=== PATIENT | male | born 1945 | race Caucasian/White ===

== ENCOUNTER 2017-04-01 20:29 | Inpatient (IN) | payer MEDICARE, MEDICAID ==
--- NOTE | 2017-04-01 21:34 | ED Physician Chart ---
ED Chief Complaint/HPI - Patient Information Date Seen:: 04/01/17 Allergies:: Allergies Allergy/AdvReac Type Severity Reaction Status Date / Time No Known Allergies Allergy Verified 02/19/17 17:07 Vitals:: Vital Signs - 8 hr 04/01/17 20:40 Temp 98.4 F HR 60 RR 18 BP 123/70 O2 Sat % 94 Family Medical History - Family Member Mother History Unknown: Yes Ethnicity: Unknown Living Status: Unknown ED Assessment - Assessment General Assessment: The patient is medically cleared for psych admit on 04/02/17 at 1:18 am. ED Septic Shock - <6hrs of presentation: Vital Signs: Vital Signs - 8 hr 04/01/17 20:40 Temp 98.4 F HR 60 RR 18 BP 123/70 O2 Sat % 94 ED Discharge Plan - Patient Disposition Instructions: Psychosis
[2017-04-01 22:20] LABS: % BASOPHILS 3.4 % (0.0-2.0); % EOSINOPHILS 0.3 % (0.0-5.0); % MONOCYTES 7.6 % (2.0-10.0); % NEUTROPHILS 74.7 % (40.0-80.0); BASOPHILE ABSOLUTE 0.3 Th/cumm (0-0.2); HEMATOCRIT 46.9 % (41.0-60); HEMOGLOBIN 15.1 gm/dL (12-16); LYMPHOCYTE ABSOLUTE 1.3 Th/cmm (1.5-3.0); MEAN CELL VOLUME 87.3 fl (80-99); MEAN CORPUSCULAR HEMOGLOBIN 28.1 pg (27.0-31.0); MEAN CORPUSCULAR HGB CONC 32.1 pg (28.0-36.0); MEAN PLATELET VOLUME 7.5 fl; MONOCYTE ABSOLUTE 0.7 Th/cmm (0.3-1.0); NEUTROPHILE ABSOLUTE 7.3 Th/cmm (1.8-8.0); PLATELET COUNT 333 Th/cmm (150-400); RED BLOOD COUNT 5.37 Mil/cmm (3.80-5.80); RED CELL DISTRIBUTION WIDTH 14.4 % (11.5-20.0); WHITE BLOOD COUNT 9.6 Th/cmm (4.8-10.8)
[2017-04-01 22:29] LABS: ANION GAP 9.7 (7.0-16.0); BUN - UREA NITROGEN 13 mg/dL (7-25); CALCIUM SERUM 9.2 mg/dL (8.6-10.3); CARBON DIOXIDE 24.4 mEq/L (21.0-31.0); CHLORIDE 107 mEq/L (98-107); CREATININE - SERUM 0.7 mg/dL (0.7-1.3); GFR AFRICAN-AMERICAN > 60.0 ml/min (>90); GFR NON AFRICAN-AMERICAN > 60.0 ml/min; GLUCOSE 91 mg/dL (70-105); POTASSIUM SERUM 4.1 mEq/L (3.5-5.1); SODIUM SERUM 137 mEq/L (136-145)
[2017-04-01] MEDS ORDERED: Magnesium Hydroxide (MOM) 30 mL UDC PO PRN (23:49)
[2017-04-01] MEDS ORDERED: Maalox 30 mL Cup PO PRN (23:49)
[2017-04-02 01:51] VITALS: BP 133/76
[2017-04-02] MEDS ORDERED: Albuterol/Ipratropium Neb 3 ML AERS HHN SCH ×2 (07:45)
[2017-04-02] MEDS ORDERED: Non-Formulary Item 1 EA (Albuterol Sulfate [Ventolin Hfa] 2 PUFF) IH SCH (09:00)
[2017-04-02] MEDS ORDERED: Non-Formulary Item 1 EA (Ipratropium Bromide [Atrovent Hfa] 2 PUFF) INH SCH (09:00)
[2017-04-02] MEDS: Aspirin 325 mg EC PO SCH (09:20)
--- NOTE | 2017-04-02 13:30 | History and Physical ---
History of Present Illness - HPI Chief Complaint: agitation HPI: This is a 71 year old male who is a assisted resident admitted to [facility] for agressive behavior. Vital Signs: Last Vital Signs Temp 97.4 F 04/02/17 06:45 Pulse 60 04/02/17 06:45 Resp 18 04/02/17 06:45 BP 140/77 04/02/17 06:45 Pulse Ox 96 04/02/17 06:45 Past Medical History Other History: pvd, copd, apraxia, heart failure, anemia, bph, dysphagia, neuralgia, schizophrenia, anxiety syncope, chronic ischemic heart disease. Family Medical History - Family Member Mother History Unknown: Yes Ethnicity: Unknown Living Status: Unknown Hx Family Cancer: (unknown) Hx Family Coronary Artery Disease: (unknown) Hx Family Congestive Heart Failure: (unknown) Hx Family Hypertension: (unknown) Hx Family Stroke: (unknown) Hx Family Diabetes: (unknown) Hx Family Seizures: (unknown) Hx Family Dementia: (unknown) Hx Family AIDS: (unknown) Hx Family HIV: No Hx Family COPD: (unknown) Hx Family Hepatitis: (unknown) Hx Family Psychiatric Problems: (unknown) Hx Family Tuberculosis: (unknown) Social History Smoke: No Alcohol: None Drugs: None Lives: Group Home - Medications Home Medications: Home Medication Medication Instructions Recorded Type Albuterol Sulfate [Ventolin Hfa] 2 puff IH TID 02/19/17 History Aspirin [Ecotrin] 325 mg PO DAILY 02/19/17 History Clopidogrel [Plavix] 75 mg PO DAILY 02/19/17 History Cyanocobalamin [Vitamin B12] 500 mcg PO DAILY 02/19/17 History Docusate Sodium [Colace] 1 tab PO BID 02/19/17 History Folic Acid [Folate*] 1 mg PO DAILY 02/19/17 History Gabapentin 2 tab PO BID 02/19/17 History Ipratropium [place] [Atrovent Hfa] 2 puff INH TID 02/19/17 History Tamsulosin [Flomax] 1 tab PO HS 02/19/17 History predniSONE [Deltasone] 1 tab PO DAILY 02/19/17 History Acetaminophen [Tylenol] 650 mg PO Q6H PRN tab 03/05/17 Rx Al Hyd/Mg Hyd/Simethicone [Maalox] 30 ml PO Q6H PRN udc 03/05/17 Rx Magnesium Hydroxide [Milk of 30 ml PO HS PRN udc 03/05/17 Rx Magnesia] - Allergies Allergies/Adverse Reactions: Allergies Allergy/AdvReac Type Severity Reaction Status Date / Time No Known Allergies Allergy Verified 02/19/17 17:07 Review of Systems - Review of Systems Constitutional: Report: No Significant Eyes: Report: No Significant ENT: Report: No Significant Respiratory: Report: No Significant Cardiovascular: Report: No Significant Gastrointestinal: Report: No Significant Musculoskeletal: Report: No Significant Skin: Report: No Significant Neurological: Report: No Significant Physical Exam - Physical Exam HEENT: Report: Ears Nose Throat within normal limits Neck: Report: Within normal limits Cardiovascular Systems: Report: +s1/s2 noted Respiratory: Report: Breath Sounds are within normal limits Abdomen: Report: Non-tender to palpation Back: Report: Inspection of back is within normal limits. Extremities: Report: Non-tender to palpation. Skin: Report: Color of skin is within normal limits Neuro/Psych: Report: Mood affect is within normal limits - Assessment Assessment: pvd, copd, apraxia, heart failure, anemia, bph, dysphagia, neuralgia, schizophrenia, anxiety syncope, chronic ischemic heart disease. - Plan Plan: ASPIRATION PRECAUTIONS CONTINUE CURRENT PLAN OF CARE
--- NOTE | 2017-04-02 19:45 | Psychosocial Evaluation ---
DATE OF SERVICE: 04/02/2017 IDENTIFYING DATA: The patient is a 71-year-old male resident of [facility]. Information is obtained by directly interviewing the patient as well as reviewing the admission papers and they are reliable. JUSTIFICATION OF HOSPITALIZATION: The patient is admitted here on a voluntary basis in view of his [id number] behaviors. Staff was spoken to. The patient is interviewed and has been getting easily irritable and angry and is stating that he does not want to talk. The patient prior to the hospitalization has been diagnosed with multiple medical problems such as peripheral vascular disease, COPD, and dysphagia, and the patient also has chronic ischemic heart disease and history of syncopal attacks. The patient at the time of the evaluation is reported to have been getting out of control and could not be contained at a lower level of care and hence the patient has to be transferred over here for further stabilization. Chart is reviewed and the patient is interviewed. During the interview, the patient is getting easily irritable and angry and is stating that there is no reason for him to talk and that all the information is there in the chart I need to look into. Review of the chart indicates that the patient is currently on gabapentin 2 capsules by mouth twice a day. The patient also has been on Plavix and has been getting the prednisone. MEDICAL HISTORY: Physical examination is requested done by Dr. Bates. SUBSTANCE ABUSE HISTORY: None. PHYSICAL OR SEXUAL ABUSE: None. SEXUAL ABUSE HISTORY: None. LEGAL PROBLEMS: None at this time. STRENGTH AND ASSETS: The patient is motivated. MENTAL STATUS EXAMINATION: The patient is a 71-year-old, looking his stated age, socially cooperative. Eye contact is fair. Mood is irritable. Affect is constricted. Insight and judgment are noted to be still impaired. Impulse control is noted to be poor. Coping skills are noted to be very poor. The patient has been having difficult time to cope with the stress. The patient has been testing the limits at this time and we will be observing the patient with the current medications before we start the psychotropic medications. The patient is alert, awake and the patient is fully aware that he is in the hospital, but the patient is getting easily irritable at this time. DIAGNOSTIC IMPRESSION: AXIS I: A. Mood disorder, not otherwise specified. B. Rule out psychosis. AXIS II: None. AXIS III: As per Dr. Bates. IMMEDIATE TREATMENT PLAN: The patient is going to be observed on the inpatient unit, provided with supportive psychotherapy. The patient is going to be closely monitored. Once stabilized, the patient is going to be discharged to self to be followed up on an outpatient basis. JOB# [id number]
[2017-04-03] MEDS: Aspirin 325 mg EC PO SCH (09:00)
--- NOTE | 2017-04-03 12:52 | Internal Medicine Prog Note ---
Internal Medicine Subjective - Subjective Service Date: 04/03/17 Patient seen and examined:: with staff Patient is:: awake Per staff patient has:: no adverse event Internal Medicine Objective - Results Result Diagrams: 04/01/17 21:45 04/01/17 21:45 Recent Labs: Laboratory Last Values WBC 9.6 Th/cmm (4.8-10.8) 04/01/17 21:45 RBC 5.37 Mil/cmm (3.80-5.80) 04/01/17 21:45 Hgb 15.1 gm/dL (12-16) 04/01/17 21:45 Hct 46.9 % (41.0-60) 04/01/17 21:45 MCV 87.3 fl (80-99) 04/01/17 21:45 MCH 28.1 pg (27.0-31.0) 04/01/17 21:45 MCHC Differential 32.1 pg (28.0-36.0) 04/01/17 21:45 RDW 14.4 % (11.5-20.0) 04/01/17 21:45 Plt Count 333 Th/cmm (150-400) 04/01/17 21:45 MPV 7.5 fl 04/01/17 21:45 Neutrophils % 74.7 % (40.0-80.0) 04/01/17 21:45 Lymphocytes % 14.0 % (20.0-50.0) L 04/01/17 21:45 Monocytes % 7.6 % (2.0-10.0) 04/01/17 21:45 Eosinophils % 0.3 % (0.0-5.0) 04/01/17 21:45 Basophils % 3.4 % (0.0-2.0) H 04/01/17 21:45 Sodium 137 mEq/L (136-145) 04/01/17 21:45 Potassium 4.1 mEq/L (3.5-5.1) 04/01/17 21:45 Chloride 107 mEq/L (98-107) 04/01/17 21:45 Carbon Dioxide 24.4 mEq/L (21.0-31.0) 04/01/17 21:45 Anion Gap 9.7 (7.0-16.0) 04/01/17 21:45 BUN 13 mg/dL (7-25) 04/01/17 21:45 Creatinine 0.7 mg/dL (0.7-1.3) 04/01/17 21:45 Est GFR ( Amer) > 60.0 ml/min (>90) 04/01/17 21:45 Est GFR (Non-Af Amer) > 60.0 ml/min 04/01/17 21:45 BUN/Creatinine Ratio 18.6 04/01/17 21:45 Glucose 91 mg/dL (70-105) 04/01/17 21:45 Calcium 9.2 mg/dL (8.6-10.3) 04/01/17 21:45 TSH 0.89 uIU/ml (0.34-5.60) 04/01/17 21:45 - Physical Exam Vitals and I&O: Vital Signs Temp 97.8 F 04/03/17 06:44 Pulse 72 04/03/17 06:44 Resp 20 04/03/17 06:44 BP 110/68 04/03/17 06:44 Pulse Ox 97 04/03/17 06:44 Intake & Output 04/02/17 04/03/17 04/03/17 18:59 06:59 18:59 Intake Total 2 120 Balance 2 120 Intake: Oral 2 120 Other: # Voids 2 3 Active Medications: Current Medications Acetaminophen (Tylenol) 650 mg PO Q6H PRN PRN Reason: Mild Pain/Headache/T above 101 Stop: 05/31/17 23:48 Al Hydrox/Mg Hydrox/Simethicone (Maalox) 30 ml PO Q6H PRN PRN Reason: Dyspepsia Stop: 05/31/17 23:48 Albuterol/Ipratropium (Duoneb Neb) 3 ml HHN Q3HR [facility] Stop: 06/01/17 07:44 Aspirin (Ecotrin) 325 mg PO DAILY [facility] Stop: 06/01/17 08:59 Last Admin: 04/03/17 09:00 Dose: 325 mg Clopidogrel Bisulfate (Plavix) 75 mg PO DAILY [facility] Stop: 06/01/17 08:59 Last Admin: 04/03/17 09:00 Dose: 75 mg Cyanocobalamin (Vitamin B12) 500 mcg PO DAILY [facility] Stop: 06/01/17 08:59 Last Admin: 04/03/17 09:00 Dose: 500 mcg Divalproex Sodium (Depakote Dr) 125 mg PO Q12HR [facility] PRN Reason: Protocol Stop: 06/02/17 20:59 Docusate Sodium (Colace) 100 mg PO BID [facility] Stop: 06/01/17 08:59 Last Admin: 04/03/17 09:00 Dose: 100 mg Folic Acid (Folate) 1 mg PO DAILY [facility] Stop: 06/01/17 08:59 Last Admin: 04/03/17 09:01 Dose: 1 mg Gabapentin (Neurontin) 200 mg PO BID [facility] Stop: 06/01/17 08:59 Last Admin: 04/03/17 09:00 Dose: 200 mg Lorazepam (Ativan) 1 mg PO Q6H PRN; Protocol PRN Reason: Anxiety/Agitation Stop: 06/01/17 01:49 Magnesium Hydroxide (Milk Of Magnesia) 30 ml PO HS PRN PRN Reason: Constipation Stop: 05/31/17 23:48 Prednisone (Deltasone) 10 mg PO DAILY [facility] Stop: 06/01/17 08:59 Last Admin: 04/03/17 09:00 Dose: 10 mg Tamsulosin HCl (Flomax) 0.4 mg PO HS [facility] Stop: 06/01/17 20:59 Last Admin: 04/02/17 21:01 Dose: 0.4 mg Zolpidem Tartrate (Ambien) 5 mg PO HS PRN PRN Reason: Insomnia Stop: 06/01/17 01:49 General: alert HEENT: NC/AT, PERRLA Neck: Supple Lungs: CTAB Cardiovascular: RRR, Normal S1, without murmur Abdomen: non-distended Internal Medicine Assmt/Plan - Assessment Assessment: pvd, copd, apraxia, heart failure, anemia, bph, dysphagia, neuralgia, schizophrenia, anxiety syncope, chronic ischemic heart disease. - Plan Plan: ASPIRATION PRECAUTIONS CONTINUE CURRENT PLAN OF CARE
--- NOTE | 2017-04-03 22:31 | Progress Notes ---
DATE: 04/03/2017 SUBJECTIVE: Staff was spoken to. The patient is interviewed. Mood is noted to be irritable. Affect is constricted. The patient coping skill was noted to be poor at this time. Insight and judgment also noted to be very much impaired. The patient has been having a difficult time to cope with the stress. The patient is screaming and yelling and needs to be redirected. The patient is currently on the prednisone, and zolpidem and in view of his impulsivity, frustration, it is decided to start him on a low dose of the Depakote, which is going to be given at 125 mg twice a day, and the patient is going to be followed up with supportive therapy. [facility]# [id number]
[2017-04-04] MEDS: Aspirin 325 mg EC PO SCH (09:08)
--- NOTE | 2017-04-04 20:30 | Progress Notes ---
DATE: 04/04/2017 PSYCHIATRIC PROGRESS NOTE SUBJECTIVE: Staff was spoken to. The patient is interviewed. Mood is noted to be irritable. Affect is constricted. Coping skills at this time are noted to be very poor. Insight and judgment are also noted to be very much impaired. No side effects to the medications are noted. The patient has been having difficult time to cope with the stress. The patient is currently on low dose of the Depakote in view of his mood swings. No side effects to the medications are noted. Sleep is noted to be poor. Appetite is noted to be fair. ASSESSMENT: The patient is still impulsive. PLAN: To continue patient with supportive therapy and encouraged the patient to verbalize the concerns rather than to act out. [facility]# [id number]
--- NOTE | 2017-04-04 23:01 | Progress Notes ---
DATE: 04/04/2017 SUBJECTIVE: The patient was seen in the dining area watching television without any staff. The patient appears to be guarded and irritable at this time with poor judgement, otherwise appears to be in no acute distress. OBJECTIVE: VITAL SIGNS: Temperature 97.2, heart rate 63, blood pressure 106/65, respirations of 19, 96% on room air. HEENT: Head is atraumatic and normocephalic. Eyes: Bilateral conjunctivae are clear. Bilateral pupils are equally round and reactive. NECK: Supple. No JVD. CARDIOVASCULAR: S1 and S2 without murmur. PULMONARY: Clear to auscultation. GASTROINTESTINAL: Soft and nontender without guarding. Positive bowel sounds. MUSCULOSKELETAL: No clubbing, no cyanosis noted. ASSESSMENT: 1. Psychosis. 2. Mood disorder. 3. Chronic obstructive pulmonary disease. 4. Anemia. 5. Benign prostatic hypertrophy. 6. Peripheral vascular disease. 7. Dysphagia. PLAN: We will continue to keep the patient inpatient in the Psychiatric Unit. We will follow up with a psychiatrist to monitor the patient's condition and status. Treatment plans were discussed with the patient's nurse. Treatment plans were discussed with Dr. Bates. JOB# [id number]
[2017-04-05] MEDS: Aspirin 325 mg EC PO SCH (09:13)
--- NOTE | 2017-04-05 10:58 | General Progress Note ---
Subjective - Review of Systems Events since last encounter: patient irritable denies pain Objective - Results Result Diagrams: 04/01/17 21:45 04/01/17 21:45 Recent Labs: Laboratory Last Values WBC 9.6 Th/cmm (4.8-10.8) 04/01/17 21:45 RBC 5.37 Mil/cmm (3.80-5.80) 04/01/17 21:45 Hgb 15.1 gm/dL (12-16) 04/01/17 21:45 Hct 46.9 % (41.0-60) 04/01/17 21:45 MCV 87.3 fl (80-99) 04/01/17 21:45 MCH 28.1 pg (27.0-31.0) 04/01/17 21:45 MCHC Differential 32.1 pg (28.0-36.0) 04/01/17 21:45 RDW 14.4 % (11.5-20.0) 04/01/17 21:45 Plt Count 333 Th/cmm (150-400) 04/01/17 21:45 MPV 7.5 fl 04/01/17 21:45 Neutrophils % 74.7 % (40.0-80.0) 04/01/17 21:45 Lymphocytes % 14.0 % (20.0-50.0) L 04/01/17 21:45 Monocytes % 7.6 % (2.0-10.0) 04/01/17 21:45 Eosinophils % 0.3 % (0.0-5.0) 04/01/17 21:45 Basophils % 3.4 % (0.0-2.0) H 04/01/17 21:45 Sodium 137 mEq/L (136-145) 04/01/17 21:45 Potassium 4.1 mEq/L (3.5-5.1) 04/01/17 21:45 Chloride 107 mEq/L (98-107) 04/01/17 21:45 Carbon Dioxide 24.4 mEq/L (21.0-31.0) 04/01/17 21:45 Anion Gap 9.7 (7.0-16.0) 04/01/17 21:45 BUN 13 mg/dL (7-25) 04/01/17 21:45 Creatinine 0.7 mg/dL (0.7-1.3) 04/01/17 21:45 Est GFR ( Amer) > 60.0 ml/min (>90) 04/01/17 21:45 Est GFR (Non-Af Amer) > 60.0 ml/min 04/01/17 21:45 BUN/Creatinine Ratio 18.6 04/01/17 21:45 Glucose 91 mg/dL (70-105) 04/01/17 21:45 Calcium 9.2 mg/dL (8.6-10.3) 04/01/17 21:45 TSH 0.89 uIU/ml (0.34-5.60) 04/01/17 21:45 RPR NONREACTIVE (NONREACTIVE) 04/01/17 21:45 - Physical Exam Vitals and I&O: Vital Signs Temp 97.9 F 04/05/17 06:02 Pulse 62 04/05/17 06:02 Resp 20 04/05/17 06:02 BP 104/54 04/05/17 06:02 Pulse Ox 96 04/05/17 06:02 Intake & Output 04/04/17 04/05/17 04/05/17 18:59 06:59 18:59 Intake Total 1200 360 Balance 1200 360 Intake: Oral 1200 360 Other: # Voids 3 1 Active Medications: Current Medications Acetaminophen (Tylenol) 650 mg PO Q6H PRN PRN Reason: Mild Pain/Headache/T above 101 Stop: 05/31/17 23:48 Al Hydrox/Mg Hydrox/Simethicone (Maalox) 30 ml PO Q6H PRN PRN Reason: Dyspepsia Stop: 05/31/17 23:48 Albuterol/Ipratropium (Duoneb Neb) 3 ml HHN Q3HR [facility] Stop: 06/01/17 07:44 Aspirin (Ecotrin) 325 mg PO DAILY [facility] Stop: 06/01/17 08:59 Last Admin: 04/05/17 09:13 Dose: 325 mg Clopidogrel Bisulfate (Plavix) 75 mg PO DAILY [facility] Stop: 06/01/17 08:59 Last Admin: 04/05/17 09:15 Dose: 75 mg Cyanocobalamin (Vitamin B12) 500 mcg PO DAILY [facility] Stop: 06/01/17 08:59 Last Admin: 04/05/17 09:15 Dose: 500 mcg Divalproex Sodium (Depakote Dr) 125 mg PO Q12HR [facility] PRN Reason: Protocol Stop: 06/02/17 20:59 Last Admin: 04/05/17 09:16 Dose: 125 mg Docusate Sodium (Colace) 100 mg PO BID [facility] Stop: 06/01/17 08:59 Last Admin: 04/05/17 09:16 Dose: 100 mg Folic Acid (Folate) 1 mg PO DAILY [facility] Stop: 06/01/17 08:59 Last Admin: 04/05/17 09:16 Dose: 1 mg Gabapentin (Neurontin) 200 mg PO BID [facility] Stop: 06/01/17 08:59 Last Admin: 04/05/17 09:13 Dose: 200 mg Lorazepam (Ativan) 1 mg PO Q6H PRN; Protocol PRN Reason: Anxiety/Agitation Stop: 06/01/17 01:49 Last Admin: 04/03/17 21:14 Dose: 1 mg Magnesium Hydroxide (Milk Of Magnesia) 30 ml PO HS PRN PRN Reason: Constipation Stop: 05/31/17 23:48 Prednisone (Deltasone) 10 mg PO DAILY [facility] Stop: 06/01/17 08:59 Last Admin: 04/05/17 09:13 Dose: 10 mg Tamsulosin HCl (Flomax) 0.4 mg PO HS [facility] Stop: 06/01/17 20:59 Last Admin: 04/04/17 21:44 Dose: 0.4 mg Zolpidem Tartrate (Ambien) 5 mg PO HS PRN PRN Reason: Insomnia Stop: 06/01/17 01:49 General: No acute distress HEENT: Atraumatic Neck: Supple Cardiovascular: Regular rate, Normal S1, Normal S2 Lungs: Clear to auscultation Abdomen: Bowel sounds Assessment/Plan - Problem List Patient Problems: All Active Problems Anemia (Acute) D64.9 BPH (benign prostatic hyperplasia) (Acute) N40.0 COPD (chronic obstructive pulmonary disease) (Acute) Dysphagia (Acute) R13.10 Mood disorder (Acute) F39 Peripheral vascular disease (Acute) I73.9 Psychosis (Acute) F29 - Plan Plan: as per psych will monitor
[2017-04-05] MEDS: Albuterol/Ipratropium Neb 3 ML AERS HHN SCH ×3 (19:31→23:32)
[2017-04-05] MEDS ORDERED: Albuterol/Ipratropium Neb 3 ML AERS HHN ONE (22:26)
[2017-04-06] MEDS ORDERED: Albuterol/Ipratropium Neb 3 ML AERS HHN ONE ×2 (02:46→07:05)
[2017-04-06] MEDS: Albuterol/Ipratropium Neb 3 ML AERS HHN SCH ×5 (03:17→23:19)
[2017-04-06] MEDS: Aspirin 325 mg EC PO SCH (10:34)
--- NOTE | 2017-04-06 11:41 | Internal Medicine Prog Note ---
Internal Medicine Subjective - Subjective Service Date: 04/06/17 Patient is:: awake Per staff patient has:: no adverse event Internal Medicine Objective - Results Result Diagrams: 04/01/17 21:45 04/01/17 21:45 Recent Labs: Laboratory Last Values WBC 9.6 Th/cmm (4.8-10.8) 04/01/17 21:45 RBC 5.37 Mil/cmm (3.80-5.80) 04/01/17 21:45 Hgb 15.1 gm/dL (12-16) 04/01/17 21:45 Hct 46.9 % (41.0-60) 04/01/17 21:45 MCV 87.3 fl (80-99) 04/01/17 21:45 MCH 28.1 pg (27.0-31.0) 04/01/17 21:45 MCHC Differential 32.1 pg (28.0-36.0) 04/01/17 21:45 RDW 14.4 % (11.5-20.0) 04/01/17 21:45 Plt Count 333 Th/cmm (150-400) 04/01/17 21:45 MPV 7.5 fl 04/01/17 21:45 Neutrophils % 74.7 % (40.0-80.0) 04/01/17 21:45 Lymphocytes % 14.0 % (20.0-50.0) L 04/01/17 21:45 Monocytes % 7.6 % (2.0-10.0) 04/01/17 21:45 Eosinophils % 0.3 % (0.0-5.0) 04/01/17 21:45 Basophils % 3.4 % (0.0-2.0) H 04/01/17 21:45 Sodium 137 mEq/L (136-145) 04/01/17 21:45 Potassium 4.1 mEq/L (3.5-5.1) 04/01/17 21:45 Chloride 107 mEq/L (98-107) 04/01/17 21:45 Carbon Dioxide 24.4 mEq/L (21.0-31.0) 04/01/17 21:45 Anion Gap 9.7 (7.0-16.0) 04/01/17 21:45 BUN 13 mg/dL (7-25) 04/01/17 21:45 Creatinine 0.7 mg/dL (0.7-1.3) 04/01/17 21:45 Est GFR ( Amer) > 60.0 ml/min (>90) 04/01/17 21:45 Est GFR (Non-Af Amer) > 60.0 ml/min 04/01/17 21:45 BUN/Creatinine Ratio 18.6 04/01/17 21:45 Glucose 91 mg/dL (70-105) 04/01/17 21:45 Calcium 9.2 mg/dL (8.6-10.3) 04/01/17 21:45 TSH 0.89 uIU/ml (0.34-5.60) 04/01/17 21:45 RPR NONREACTIVE (NONREACTIVE) 04/01/17 21:45 - Physical Exam Vitals and I&O: Vital Signs Temp 98.8 F 04/06/17 06:33 Pulse 60 04/06/17 07:20 Resp 20 04/06/17 07:20 BP 99/57 04/06/17 06:33 Pulse Ox 94 04/06/17 07:20 Intake & Output 04/05/17 04/06/17 04/06/17 18:59 06:59 18:59 Intake Total 1200 180 Balance 1200 180 Intake: Oral 1200 180 Other: # Voids 2 2 # Bowel Movements 1 Active Medications: Current Medications Acetaminophen (Tylenol) 650 mg PO Q6H PRN PRN Reason: Mild Pain/Headache/T above 101 Stop: 05/31/17 23:48 Last Admin: 04/05/17 15:19 Dose: 650 mg Al Hydrox/Mg Hydrox/Simethicone (Maalox) 30 ml PO Q6H PRN PRN Reason: Dyspepsia Stop: 05/31/17 23:48 Albuterol/Ipratropium (Duoneb Neb) 3 ml HHN Q4HRT [facility] Stop: 06/04/17 18:59 Last Admin: 04/06/17 07:20 Dose: Not Given Aspirin (Ecotrin) 325 mg PO DAILY [facility] Stop: 06/01/17 08:59 Last Admin: 04/06/17 10:34 Dose: 325 mg Clopidogrel Bisulfate (Plavix) 75 mg PO DAILY [facility] Stop: 06/01/17 08:59 Last Admin: 04/06/17 10:34 Dose: 75 mg Cyanocobalamin (Vitamin B12) 500 mcg PO DAILY [facility] Stop: 06/01/17 08:59 Last Admin: 04/06/17 10:34 Dose: 500 mcg Divalproex Sodium (Depakote Dr) 125 mg PO Q12HR [facility] PRN Reason: Protocol Stop: 06/02/17 20:59 Last Admin: 04/06/17 10:35 Dose: 125 mg Docusate Sodium (Colace) 100 mg PO BID [facility] Stop: 06/01/17 08:59 Last Admin: 04/06/17 10:35 Dose: 100 mg Folic Acid (Folate) 1 mg PO DAILY [facility] Stop: 06/01/17 08:59 Last Admin: 04/06/17 10:35 Dose: 1 mg Gabapentin (Neurontin) 200 mg PO BID [facility] Stop: 06/01/17 08:59 Last Admin: 04/06/17 10:35 Dose: 200 mg Lorazepam (Ativan) 1 mg PO Q6H PRN; Protocol PRN Reason: Anxiety/Agitation Stop: 06/01/17 01:49 Last Admin: 04/03/17 21:14 Dose: 1 mg Magnesium Hydroxide (Milk Of Magnesia) 30 ml PO HS PRN PRN Reason: Constipation Stop: 05/31/17 23:48 Prednisone (Deltasone) 10 mg PO DAILY [facility] Stop: 06/01/17 08:59 Last Admin: 04/06/17 10:35 Dose: 10 mg Tamsulosin HCl (Flomax) 0.4 mg PO HS [facility] Stop: 06/01/17 20:59 Last Admin: 04/05/17 20:31 Dose: 0.4 mg Zolpidem Tartrate (Ambien) 5 mg PO HS PRN PRN Reason: Insomnia Stop: 06/01/17 01:49 General: alert HEENT: NC/AT, PERRLA Neck: Supple Lungs: CTAB Cardiovascular: RRR, Normal S1, without murmur Abdomen: non-distended Internal Medicine Assmt/Plan - Assessment Assessment: pvd, copd, apraxia, heart failure, anemia, bph, dysphagia, neuralgia, schizophrenia, anxiety syncope, chronic ischemic heart disease. - Plan Plan: ASPIRATION PRECAUTIONS CONTINUE CURRENT PLAN OF CARE
--- NOTE | 2017-04-06 21:26 | Progress Notes ---
DATE: 04/06/2017 SUBJECTIVE: Staff was spoken to. The patient is interviewed. Mood is noted to be less irritable. The patient is isolative and withdrawn. Coping skills are noted to be still poor. Screaming and the yelling episodes have been coming down. He is currently on Depakote. No side effects to the medications are noted. ASSESSMENT: The patient's mood swings are coming under control. PLAN: To continue the patient with the supportive therapy and followup. JOB# [id number]
[2017-04-07] MEDS: Albuterol/Ipratropium Neb 3 ML AERS HHN SCH ×7 (02:14→23:53)
--- NOTE | 2017-04-07 16:18 | General Progress Note ---
Subjective - Review of Systems Events since last encounter: patient awake , in no distress Objective - Results Result Diagrams: 04/01/17 21:45 04/01/17 21:45 Recent Labs: Laboratory Last Values WBC 9.6 Th/cmm (4.8-10.8) 04/01/17 21:45 RBC 5.37 Mil/cmm (3.80-5.80) 04/01/17 21:45 Hgb 15.1 gm/dL (12-16) 04/01/17 21:45 Hct 46.9 % (41.0-60) 04/01/17 21:45 MCV 87.3 fl (80-99) 04/01/17 21:45 MCH 28.1 pg (27.0-31.0) 04/01/17 21:45 MCHC Differential 32.1 pg (28.0-36.0) 04/01/17 21:45 RDW 14.4 % (11.5-20.0) 04/01/17 21:45 Plt Count 333 Th/cmm (150-400) 04/01/17 21:45 MPV 7.5 fl 04/01/17 21:45 Neutrophils % 74.7 % (40.0-80.0) 04/01/17 21:45 Lymphocytes % 14.0 % (20.0-50.0) L 04/01/17 21:45 Monocytes % 7.6 % (2.0-10.0) 04/01/17 21:45 Eosinophils % 0.3 % (0.0-5.0) 04/01/17 21:45 Basophils % 3.4 % (0.0-2.0) H 04/01/17 21:45 Sodium 137 mEq/L (136-145) 04/01/17 21:45 Potassium 4.1 mEq/L (3.5-5.1) 04/01/17 21:45 Chloride 107 mEq/L (98-107) 04/01/17 21:45 Carbon Dioxide 24.4 mEq/L (21.0-31.0) 04/01/17 21:45 Anion Gap 9.7 (7.0-16.0) 04/01/17 21:45 BUN 13 mg/dL (7-25) 04/01/17 21:45 Creatinine 0.7 mg/dL (0.7-1.3) 04/01/17 21:45 Est GFR ( Amer) > 60.0 ml/min (>90) 04/01/17 21:45 Est GFR (Non-Af Amer) > 60.0 ml/min 04/01/17 21:45 BUN/Creatinine Ratio 18.6 04/01/17 21:45 Glucose 91 mg/dL (70-105) 04/01/17 21:45 Calcium 9.2 mg/dL (8.6-10.3) 04/01/17 21:45 TSH 0.89 uIU/ml (0.34-5.60) 04/01/17 21:45 RPR NONREACTIVE (NONREACTIVE) 04/01/17 21:45 - Physical Exam Vitals and I&O: Vital Signs Temp 98.0 F 04/06/17 20:26 Pulse 77 04/07/17 16:01 Resp 20 04/07/17 16:01 BP 108/50 04/06/17 20:26 Pulse Ox 94 04/07/17 16:01 Intake & Output 04/06/17 04/07/17 04/07/17 18:59 06:59 18:59 Intake Total 1200 60 Balance 1200 60 Intake: Oral 1200 60 Other: # Voids 3 1 # Bowel Movements 1 0 Active Medications: Current Medications Acetaminophen (Tylenol) 650 mg PO Q6H PRN PRN Reason: Mild Pain/Headache/T above 101 Stop: 05/31/17 23:48 Last Admin: 04/05/17 15:19 Dose: 650 mg Al Hydrox/Mg Hydrox/Simethicone (Maalox) 30 ml PO Q6H PRN PRN Reason: Dyspepsia Stop: 05/31/17 23:48 Albuterol/Ipratropium (Duoneb Neb) 3 ml HHN Q4HRT [facility] Stop: 06/04/17 18:59 Last Admin: 04/07/17 15:50 Dose: 3 ml Aspirin (Ecotrin) 325 mg PO DAILY [facility] Stop: 06/01/17 08:59 Last Admin: 04/06/17 10:34 Dose: 325 mg Clopidogrel Bisulfate (Plavix) 75 mg PO DAILY [facility] Stop: 06/01/17 08:59 Last Admin: 04/06/17 10:34 Dose: 75 mg Cyanocobalamin (Vitamin B12) 500 mcg PO DAILY [facility] Stop: 06/01/17 08:59 Last Admin: 04/06/17 10:34 Dose: 500 mcg Divalproex Sodium (Depakote Dr) 125 mg PO Q12HR [facility] PRN Reason: Protocol Stop: 06/02/17 20:59 Last Admin: 04/06/17 20:04 Dose: 125 mg Docusate Sodium (Colace) 100 mg PO BID [facility] Stop: 06/01/17 08:59 Last Admin: 04/06/17 18:34 Dose: 100 mg Folic Acid (Folate) 1 mg PO DAILY [facility] Stop: 06/01/17 08:59 Last Admin: 04/06/17 10:35 Dose: 1 mg Gabapentin (Neurontin) 200 mg PO BID [facility] Stop: 06/01/17 08:59 Last Admin: 04/06/17 18:34 Dose: 200 mg Lorazepam (Ativan) 1 mg PO Q6H PRN; Protocol PRN Reason: Anxiety/Agitation Stop: 06/01/17 01:49 Last Admin: 04/03/17 21:14 Dose: 1 mg Magnesium Hydroxide (Milk Of Magnesia) 30 ml PO HS PRN PRN Reason: Constipation Stop: 05/31/17 23:48 Prednisone (Deltasone) 10 mg PO DAILY [facility] Stop: 06/01/17 08:59 Last Admin: 04/06/17 10:35 Dose: 10 mg Tamsulosin HCl (Flomax) 0.4 mg PO HS [facility] Stop: 06/01/17 20:59 Last Admin: 04/06/17 20:05 Dose: 0.4 mg Zolpidem Tartrate (Ambien) 5 mg PO HS PRN PRN Reason: Insomnia Stop: 06/01/17 01:49 General: No acute distress HEENT: Atraumatic Neck: Supple Cardiovascular: Regular rate, Normal S1, Normal S2 Lungs: Clear to auscultation Abdomen: Bowel sounds Assessment/Plan - Problem List Patient Problems: All Active Problems Anemia (Acute) D64.9 BPH (benign prostatic hyperplasia) (Acute) N40.0 COPD (chronic obstructive pulmonary disease) (Acute) Dysphagia (Acute) R13.10 Mood disorder (Acute) F39 Peripheral vascular disease (Acute) I73.9 Psychosis (Acute) F29 - Plan Plan: as per psych will monitor Nutritional Asmnt/Malnutr-PDOC - Dietary Evaluation Malnutrition Findings (Please click <Entered> for more info): Nutritional Asmnt/Malnutrition Start: 04/06/17 15: 43 Text: Status: Complete Freq: Document 04/06/17 15:43 SALIMA (Rec: 04/06/17 15:47 SALIMA [email or web address]) Nutritional Asmnt/Malnutrition Patient General Information Nutritional Screening Moderate Risk Diagnosis psychosis Pertinent Medical Hx/Surgical Hx PVD, CODP, aprzxia, heart failure, anemia, BPH, dysphagia, neuralgia, schizophrenia, anxiety syncope , chronic ischemic heart disease Subjective Information Per EMR, PO intake 100% of all meals since admission Current Diet Order/ Nutrition Support NIALL pureed, nectar, extra gravy Pertinent Medications vitamin B12, colace, folate Pertinent Labs 04/01 nutrition related labs WNL Nutritional Hx/Data Height 1.75 m Height (Calculated Centimeters) 175.3 Current Weight (lbs) 81.647 kg Weight (Calculated Kilograms) 81.6 Weight (Calculated Grams) 59856.6 [place] Body Weight 160 % [place] Body Weight 113 Body Mass Index (BMI) 26.6 Weight Status Overweight GI Symptoms GI Symptoms None Last BM 04/06 Difficult in: None Skin Integrity/Comment: intact Estimated Nutritional Goals BEE in Kcals: Using Current wt Calories/Kcals/Kg 25-30 Kcals Calculated Protein: Using Current wt Protein g/k Protein Calculated 82 Fluid: ml Nutritional Problem No current Nutrition Prob Problem N/A Intervention/Recommendation Comments 1. Continue with current diet as ordered. 2. Monitor PO intake, wt, labs and skin integrity 3. F/U as low riwk in 7 days, 04/13 Expected Outcomes/Goals Expected Outcomes/Goals 1. PO intake to meet at least 75% of nutritional needs. 2. Wt stability, skin to remain intact, labs WNL.
[2017-04-07] MEDS: Aspirin 325 mg EC PO SCH (16:47)
--- NOTE | 2017-04-07 23:45 | Progress Notes ---
DATE: 04/07/2017 SUBJECTIVE: Staff was spoken to. The patient is interviewed. Mood is noted to be irritable. Affect is constricted. The patient is tending to scream and yell. The patient is currently on Depakote as well as gabapentin. The patient has no insight into his illness. The patient is not able to participate in the groups and isolated to most of the time to his room. No side effects to the medications are noted. ASSESSMENT: The patient is still grossly psychotic and still impulsive. PLAN: To continue the patient with supportive therapy, I encouraged the patient to verbalize the concerns rather than to act out. JOB# [id number]
[2017-04-08] MEDS: Albuterol/Ipratropium Neb 3 ML AERS HHN SCH ×5 (02:50→20:33)
--- NOTE | 2017-04-08 09:12 | General Progress Note ---
Subjective - Review of Systems Events since last encounter: awake in no distress Objective - Results Result Diagrams: 04/01/17 21:45 04/01/17 21:45 Recent Labs: Laboratory Last Values WBC 9.6 Th/cmm (4.8-10.8) 04/01/17 21:45 RBC 5.37 Mil/cmm (3.80-5.80) 04/01/17 21:45 Hgb 15.1 gm/dL (12-16) 04/01/17 21:45 Hct 46.9 % (41.0-60) 04/01/17 21:45 MCV 87.3 fl (80-99) 04/01/17 21:45 MCH 28.1 pg (27.0-31.0) 04/01/17 21:45 MCHC Differential 32.1 pg (28.0-36.0) 04/01/17 21:45 RDW 14.4 % (11.5-20.0) 04/01/17 21:45 Plt Count 333 Th/cmm (150-400) 04/01/17 21:45 MPV 7.5 fl 04/01/17 21:45 Neutrophils % 74.7 % (40.0-80.0) 04/01/17 21:45 Lymphocytes % 14.0 % (20.0-50.0) L 04/01/17 21:45 Monocytes % 7.6 % (2.0-10.0) 04/01/17 21:45 Eosinophils % 0.3 % (0.0-5.0) 04/01/17 21:45 Basophils % 3.4 % (0.0-2.0) H 04/01/17 21:45 Sodium 137 mEq/L (136-145) 04/01/17 21:45 Potassium 4.1 mEq/L (3.5-5.1) 04/01/17 21:45 Chloride 107 mEq/L (98-107) 04/01/17 21:45 Carbon Dioxide 24.4 mEq/L (21.0-31.0) 04/01/17 21:45 Anion Gap 9.7 (7.0-16.0) 04/01/17 21:45 BUN 13 mg/dL (7-25) 04/01/17 21:45 Creatinine 0.7 mg/dL (0.7-1.3) 04/01/17 21:45 Est GFR ( Amer) > 60.0 ml/min (>90) 04/01/17 21:45 Est GFR (Non-Af Amer) > 60.0 ml/min 04/01/17 21:45 BUN/Creatinine Ratio 18.6 04/01/17 21:45 Glucose 91 mg/dL (70-105) 04/01/17 21:45 Calcium 9.2 mg/dL (8.6-10.3) 04/01/17 21:45 TSH 0.89 uIU/ml (0.34-5.60) 04/01/17 21:45 RPR NONREACTIVE (NONREACTIVE) 04/01/17 21:45 - Physical Exam Vitals and I&O: Vital Signs Temp 97.7 F 04/08/17 06:20 Pulse 79 04/08/17 07:20 Resp 20 04/08/17 07:20 BP 116/67 04/08/17 06:20 Pulse Ox 96 04/08/17 07:20 Intake & Output 04/07/17 04/08/17 04/08/17 18:59 06:59 18:59 Intake Total 310 Balance 310 Intake: Oral 310 Other: # Voids 2 # Bowel Movements 0 Active Medications: Current Medications Acetaminophen (Tylenol) 650 mg PO Q6H PRN PRN Reason: Mild Pain/Headache/T above 101 Stop: 05/31/17 23:48 Last Admin: 04/05/17 15:19 Dose: 650 mg Al Hydrox/Mg Hydrox/Simethicone (Maalox) 30 ml PO Q6H PRN PRN Reason: Dyspepsia Stop: 05/31/17 23:48 Albuterol/Ipratropium (Duoneb Neb) 3 ml HHN Q4HRT [facility] Stop: 06/04/17 18:59 Last Admin: 04/08/17 07:20 Dose: 3 ml Aspirin (Ecotrin) 325 mg PO DAILY [facility] Stop: 06/01/17 08:59 Last Admin: 04/07/17 16:47 Dose: Not Given Clopidogrel Bisulfate (Plavix) 75 mg PO DAILY [facility] Stop: 06/01/17 08:59 Last Admin: 04/07/17 17:30 Dose: 75 mg Cyanocobalamin (Vitamin B12) 500 mcg PO DAILY [facility] Stop: 06/01/17 08:59 Last Admin: 04/07/17 16:48 Dose: Not Given Divalproex Sodium (Depakote Dr) 125 mg PO Q12HR [facility] PRN Reason: Protocol Stop: 06/02/17 20:59 Last Admin: 04/07/17 20:40 Dose: 125 mg Docusate Sodium (Colace) 100 mg PO BID [facility] Stop: 06/01/17 08:59 Last Admin: 04/07/17 17:29 Dose: Not Given Folic Acid (Folate) 1 mg PO DAILY [facility] Stop: 06/01/17 08:59 Last Admin: 04/07/17 16:48 Dose: Not Given Gabapentin (Neurontin) 200 mg PO BID [facility] Stop: 06/01/17 08:59 Last Admin: 04/07/17 16:48 Dose: Not Given Lorazepam (Ativan) 1 mg PO Q6H PRN; Protocol PRN Reason: Anxiety/Agitation Stop: 06/01/17 01:49 Last Admin: 04/03/17 21:14 Dose: 1 mg Magnesium Hydroxide (Milk Of Magnesia) 30 ml PO HS PRN PRN Reason: Constipation Stop: 05/31/17 23:48 Prednisone (Deltasone) 10 mg PO DAILY [facility] Stop: 06/01/17 08:59 Last Admin: 04/07/17 17:29 Dose: 10 mg Tamsulosin HCl (Flomax) 0.4 mg PO HS [facility] Stop: 06/01/17 20:59 Last Admin: 04/07/17 20:40 Dose: 0.4 mg Zolpidem Tartrate (Ambien) 5 mg PO HS PRN PRN Reason: Insomnia Stop: 06/01/17 01:49 General: No acute distress HEENT: Atraumatic Neck: Supple Cardiovascular: Regular rate, Normal S1, Normal S2 Lungs: Clear to auscultation Abdomen: Bowel sounds Assessment/Plan - Problem List Patient Problems: All Active Problems Anemia (Acute) D64.9 BPH (benign prostatic hyperplasia) (Acute) N40.0 COPD (chronic obstructive pulmonary disease) (Acute) Dysphagia (Acute) R13.10 Mood disorder (Acute) F39 Peripheral vascular disease (Acute) I73.9 Psychosis (Acute) F29 - Plan Plan: as per psych will monitor Nutritional Asmnt/Malnutr-PDOC - Dietary Evaluation Malnutrition Findings (Please click <Entered> for more info): Nutritional Asmnt/Malnutrition Start: 04/06/17 15: 43 Text: Status: Complete Freq: Document 04/06/17 15:43 SALIMA (Rec: 04/06/17 15:47 SALIMA [email or web address]) Nutritional Asmnt/Malnutrition Patient General Information Nutritional Screening Moderate Risk Diagnosis psychosis Pertinent Medical Hx/Surgical Hx PVD, CODP, aprzxia, heart failure, anemia, BPH, dysphagia, neuralgia, schizophrenia, anxiety syncope , chronic ischemic heart disease Subjective Information Per EMR, PO intake 100% of all meals since admission Current Diet Order/ Nutrition Support NIALL pureed, nectar, extra gravy Pertinent Medications vitamin B12, colace, folate Pertinent Labs 04/01 nutrition related labs WNL Nutritional Hx/Data Height 1.75 m Height (Calculated Centimeters) 175.3 Current Weight (lbs) 81.647 kg Weight (Calculated Kilograms) 81.6 Weight (Calculated Grams) 62969.6 [place] Body Weight 160 % [place] Body Weight 113 Body Mass Index (BMI) 26.6 Weight Status Overweight GI Symptoms GI Symptoms None Last BM 04/06 Difficult in: None Skin Integrity/Comment: intact Estimated Nutritional Goals BEE in Kcals: Using Current wt Calories/Kcals/Kg 25-30 Kcals Calculated Protein: Using Current wt Protein g/k Protein Calculated 82 Fluid: ml [id number] Nutritional Problem No current Nutrition Prob Problem N/A Intervention/Recommendation Comments 1. Continue with current diet as ordered. 2. Monitor PO intake, wt, labs and skin integrity 3. F/U as low riwk in 7 days, 04/13 Expected Outcomes/Goals Expected Outcomes/Goals 1. PO intake to meet at least 75% of nutritional needs. 2. Wt stability, skin to remain intact, labs WNL.
[2017-04-08] MEDS: Aspirin 325 mg EC PO SCH (11:11)
--- NOTE | 2017-04-08 18:54 | Progress Notes ---
DATE: 04/08/2017 PSYCHIATRIC PROGRESS NOTE SUBJECTIVE: Staff was spoken to. The patient is interviewed. Mood is noted to be irritable. Affect is constricted. Coping skills are noted to be still poor. Insight and judgment noted to be improving. The patient is currently on 125 mg twice a day of the Depakote and has been able to tolerate. No side effects to the medications are noted at this time. The patient has episodes of screaming and yelling, but he could be redirectable at this time. ASSESSMENT: The patient is still impulsive. PLAN: To continue the patient with supportive therapy. I encouraged the patient to verbalize the concerns rather than to act out. JOB# [id number]
[2017-04-09] MEDS: Albuterol/Ipratropium Neb 3 ML AERS HHN SCH ×7 (00:04→23:48)
--- NOTE | 2017-04-09 08:40 | General Progress Note ---
Subjective - Review of Systems Events since last encounter: still impulsive Objective - Results Result Diagrams: 04/01/17 21:45 04/01/17 21:45 Recent Labs: Laboratory Last Values WBC 9.6 Th/cmm (4.8-10.8) 04/01/17 21:45 RBC 5.37 Mil/cmm (3.80-5.80) 04/01/17 21:45 Hgb 15.1 gm/dL (12-16) 04/01/17 21:45 Hct 46.9 % (41.0-60) 04/01/17 21:45 MCV 87.3 fl (80-99) 04/01/17 21:45 MCH 28.1 pg (27.0-31.0) 04/01/17 21:45 MCHC Differential 32.1 pg (28.0-36.0) 04/01/17 21:45 RDW 14.4 % (11.5-20.0) 04/01/17 21:45 Plt Count 333 Th/cmm (150-400) 04/01/17 21:45 MPV 7.5 fl 04/01/17 21:45 Neutrophils % 74.7 % (40.0-80.0) 04/01/17 21:45 Lymphocytes % 14.0 % (20.0-50.0) L 04/01/17 21:45 Monocytes % 7.6 % (2.0-10.0) 04/01/17 21:45 Eosinophils % 0.3 % (0.0-5.0) 04/01/17 21:45 Basophils % 3.4 % (0.0-2.0) H 04/01/17 21:45 Sodium 137 mEq/L (136-145) 04/01/17 21:45 Potassium 4.1 mEq/L (3.5-5.1) 04/01/17 21:45 Chloride 107 mEq/L (98-107) 04/01/17 21:45 Carbon Dioxide 24.4 mEq/L (21.0-31.0) 04/01/17 21:45 Anion Gap 9.7 (7.0-16.0) 04/01/17 21:45 BUN 13 mg/dL (7-25) 04/01/17 21:45 Creatinine 0.7 mg/dL (0.7-1.3) 04/01/17 21:45 Est GFR ( Amer) > 60.0 ml/min (>90) 04/01/17 21:45 Est GFR (Non-Af Amer) > 60.0 ml/min 04/01/17 21:45 BUN/Creatinine Ratio 18.6 04/01/17 21:45 Glucose 91 mg/dL (70-105) 04/01/17 21:45 Calcium 9.2 mg/dL (8.6-10.3) 04/01/17 21:45 TSH 0.89 uIU/ml (0.34-5.60) 04/01/17 21:45 RPR NONREACTIVE (NONREACTIVE) 04/01/17 21:45 - Physical Exam Vitals and I&O: Vital Signs Temp 98.6 F 04/09/17 06:39 Pulse 66 04/09/17 07:26 Resp 20 04/09/17 07:26 BP 120/69 04/09/17 06:39 Pulse Ox 98 04/09/17 07:26 Intake & Output 04/08/17 04/09/17 04/09/17 18:59 06:59 18:59 Intake Total 800 120 Balance 800 120 Intake: Oral 800 120 Other: # Voids 3 3 # Bowel Movements 1 Active Medications: Current Medications Acetaminophen (Tylenol) 650 mg PO Q6H PRN PRN Reason: Mild Pain/Headache/T above 101 Stop: 05/31/17 23:48 Last Admin: 04/05/17 15:19 Dose: 650 mg Al Hydrox/Mg Hydrox/Simethicone (Maalox) 30 ml PO Q6H PRN PRN Reason: Dyspepsia Stop: 05/31/17 23:48 Albuterol/Ipratropium (Duoneb Neb) 3 ml HHN Q4HRT [facility] Stop: 06/04/17 18:59 Last Admin: 04/09/17 07:26 Dose: 3 ml Aspirin (Ecotrin) 325 mg PO DAILY [facility] Stop: 06/01/17 08:59 Last Admin: 04/08/17 11:11 Dose: 325 mg Clopidogrel Bisulfate (Plavix) 75 mg PO DAILY [facility] Stop: 06/01/17 08:59 Last Admin: 04/08/17 11:11 Dose: 75 mg Cyanocobalamin (Vitamin B12) 500 mcg PO DAILY [facility] Stop: 06/01/17 08:59 Last Admin: 04/08/17 11:11 Dose: 500 mcg Divalproex Sodium (Depakote Dr) 125 mg PO Q12HR [facility] PRN Reason: Protocol Stop: 06/02/17 20:59 Last Admin: 04/08/17 21:41 Dose: 125 mg Docusate Sodium (Colace) 100 mg PO BID [facility] Stop: 06/01/17 08:59 Last Admin: 04/08/17 18:56 Dose: Not Given Folic Acid (Folate) 1 mg PO DAILY [facility] Stop: 06/01/17 08:59 Last Admin: 04/08/17 11:11 Dose: 1 mg Gabapentin (Neurontin) 200 mg PO BID [facility] Stop: 06/01/17 08:59 Last Admin: 04/08/17 18:00 Dose: 200 mg Lorazepam (Ativan) 1 mg PO Q6H PRN; Protocol PRN Reason: Anxiety/Agitation Stop: 06/01/17 01:49 Last Admin: 04/03/17 21:14 Dose: 1 mg Magnesium Hydroxide (Milk Of Magnesia) 30 ml PO HS PRN PRN Reason: Constipation Stop: 05/31/17 23:48 Prednisone (Deltasone) 10 mg PO DAILY [facility] Stop: 06/01/17 08:59 Last Admin: 04/08/17 11:11 Dose: 10 mg Tamsulosin HCl (Flomax) 0.4 mg PO HS [facility] Stop: 06/01/17 20:59 Last Admin: 04/08/17 21:41 Dose: 0.4 mg Zolpidem Tartrate (Ambien) 5 mg PO HS PRN PRN Reason: Insomnia Stop: 06/01/17 01:49 General: No acute distress HEENT: Atraumatic Neck: Supple Cardiovascular: Regular rate, Normal S1, Normal S2 Lungs: Clear to auscultation Abdomen: Bowel sounds Assessment/Plan - Problem List Patient Problems: All Active Problems Anemia (Acute) D64.9 BPH (benign prostatic hyperplasia) (Acute) N40.0 COPD (chronic obstructive pulmonary disease) (Acute) Dysphagia (Acute) R13.10 Mood disorder (Acute) F39 Peripheral vascular disease (Acute) I73.9 Psychosis (Acute) F29 - Plan Plan: as per psych will monitor Nutritional Asmnt/Malnutr-PDOC - Dietary Evaluation Malnutrition Findings (Please click <Entered> for more info): Nutritional Asmnt/Malnutrition Start: 04/06/17 15: 43 Text: Status: Complete Freq: Document 04/06/17 15:43 SALIMA (Rec: 04/06/17 15:47 SALIMA [email or web address]) Nutritional Asmnt/Malnutrition Patient General Information Nutritional Screening Moderate Risk Diagnosis psychosis Pertinent Medical Hx/Surgical Hx PVD, CODP, aprzxia, heart failure, anemia, BPH, dysphagia, neuralgia, schizophrenia, anxiety syncope , chronic ischemic heart disease Subjective Information Per EMR, PO intake 100% of all meals since admission Current Diet Order/ Nutrition Support NIALL pureed, nectar, extra gravy Pertinent Medications vitamin B12, colace, folate Pertinent Labs 04/01 nutrition related labs WNL Nutritional Hx/Data Height 1.75 m Height (Calculated Centimeters) 175.3 Current Weight (lbs) 81.647 kg Weight (Calculated Kilograms) 81.6 Weight (Calculated Grams) 24595.6 [place] Body Weight 160 % [place] Body Weight 113 Body Mass Index (BMI) 26.6 Weight Status Overweight GI Symptoms GI Symptoms None Last BM 04/06 Difficult in: None Skin Integrity/Comment: intact Estimated Nutritional Goals BEE in Kcals: Using Current wt Calories/Kcals/Kg 25-30 Kcals Calculated Protein: Using Current wt Protein g/k Protein Calculated 82 Fluid: ml [id number] Nutritional Problem No current Nutrition Prob Problem N/A Intervention/Recommendation Comments 1. Continue with current diet as ordered. 2. Monitor PO intake, wt, labs and skin integrity 3. F/U as low riwk in 7 days, 04/13 Expected Outcomes/Goals Expected Outcomes/Goals 1. PO intake to meet at least 75% of nutritional needs. 2. Wt stability, skin to remain intact, labs WNL.
[2017-04-09] MEDS: Aspirin 325 mg EC PO SCH (08:57)
[2017-04-09] MEDS ORDERED: Albuterol/Ipratropium Neb 3 ML AERS HHN ONE (22:55)
--- NOTE | 2017-04-09 23:01 | Progress Notes ---
DATE: 04/09/2017 SUBJECTIVE: Staff was spoken to. The patient is interviewed. Mood is noted to be irritable. Affect is constricted. Coping skills are noted to still poor. Sleep and appetite also noted to be very poor. The patients screaming and yelling episodes have been coming down to some extent. The patient has been able to tolerate the Depakote. ASSESSMENT: The patient is still impulsive. PLAN: To continue the patient with the supportive therapy and followup. [facility]# [id number]
[2017-04-10] MEDS ORDERED: Albuterol/Ipratropium Neb 3 ML AERS HHN ONE (02:40)
[2017-04-10] MEDS: Albuterol/Ipratropium Neb 3 ML AERS HHN SCH ×5 (03:05→19:28)
[2017-04-10] MEDS: Aspirin 325 mg EC PO SCH (09:01)
--- NOTE | 2017-04-10 11:44 | Progress Notes ---
DATE: 04/10/2017 SUBJECTIVE: Staff was spoken to. The patient is interviewed. Mood is noted to be anxious. Coping skills are noted to be still poor. The patient's impulsivity is coming under control. No side effects to the medications are noted. The patient has been isolative and withdrawn. No major behavioral problems are noted at this time. ASSESSMENT: The patient is still impulsive. PLAN: To continue the patient with the supportive therapy and followup. [facility]# [id number]
--- NOTE | 2017-04-10 20:49 | Internal Medicine Prog Note ---
Internal Medicine Subjective - Subjective Service Date: 04/10/17 Patient is:: awake Per staff patient has:: no adverse event Internal Medicine Objective - Results Result Diagrams: 04/01/17 21:45 04/01/17 21:45 Recent Labs: Laboratory Last Values WBC 9.6 Th/cmm (4.8-10.8) 04/01/17 21:45 RBC 5.37 Mil/cmm (3.80-5.80) 04/01/17 21:45 Hgb 15.1 gm/dL (12-16) 04/01/17 21:45 Hct 46.9 % (41.0-60) 04/01/17 21:45 MCV 87.3 fl (80-99) 04/01/17 21:45 MCH 28.1 pg (27.0-31.0) 04/01/17 21:45 MCHC Differential 32.1 pg (28.0-36.0) 04/01/17 21:45 RDW 14.4 % (11.5-20.0) 04/01/17 21:45 Plt Count 333 Th/cmm (150-400) 04/01/17 21:45 MPV 7.5 fl 04/01/17 21:45 Neutrophils % 74.7 % (40.0-80.0) 04/01/17 21:45 Lymphocytes % 14.0 % (20.0-50.0) L 04/01/17 21:45 Monocytes % 7.6 % (2.0-10.0) 04/01/17 21:45 Eosinophils % 0.3 % (0.0-5.0) 04/01/17 21:45 Basophils % 3.4 % (0.0-2.0) H 04/01/17 21:45 Sodium 137 mEq/L (136-145) 04/01/17 21:45 Potassium 4.1 mEq/L (3.5-5.1) 04/01/17 21:45 Chloride 107 mEq/L (98-107) 04/01/17 21:45 Carbon Dioxide 24.4 mEq/L (21.0-31.0) 04/01/17 21:45 Anion Gap 9.7 (7.0-16.0) 04/01/17 21:45 BUN 13 mg/dL (7-25) 04/01/17 21:45 Creatinine 0.7 mg/dL (0.7-1.3) 04/01/17 21:45 Est GFR ( Amer) > 60.0 ml/min (>90) 04/01/17 21:45 Est GFR (Non-Af Amer) > 60.0 ml/min 04/01/17 21:45 BUN/Creatinine Ratio 18.6 04/01/17 21:45 Glucose 91 mg/dL (70-105) 04/01/17 21:45 Calcium 9.2 mg/dL (8.6-10.3) 04/01/17 21:45 TSH 0.89 uIU/ml (0.34-5.60) 04/01/17 21:45 RPR NONREACTIVE (NONREACTIVE) 04/01/17 21:45 - Physical Exam Vitals and I&O: Vital Signs Temp 97.8 F 04/10/17 20:13 Pulse 74 04/10/17 20:13 Resp 18 04/10/17 20:13 BP 107/58 04/10/17 20:13 Pulse Ox 93 04/10/17 20:13 Intake & Output 04/10/17 04/10/17 04/11/17 06:59 18:59 06:59 Intake Total 1200 120 Balance 1200 120 Intake: Oral 1200 120 Other: # Voids 3 1 Active Medications: Current Medications Acetaminophen (Tylenol) 650 mg PO Q6H PRN PRN Reason: Mild Pain/Headache/T above 101 Stop: 05/31/17 23:48 Last Admin: 04/05/17 15:19 Dose: 650 mg Al Hydrox/Mg Hydrox/Simethicone (Maalox) 30 ml PO Q6H PRN PRN Reason: Dyspepsia Stop: 05/31/17 23:48 Albuterol/Ipratropium (Duoneb Neb) 3 ml HHN Q4HRT [facility] Stop: 06/04/17 18:59 Last Admin: 04/10/17 16:21 Dose: 3 ml Aspirin (Ecotrin) 325 mg PO DAILY [facility] Stop: 06/01/17 08:59 Last Admin: 04/10/17 09:01 Dose: 325 mg Clopidogrel Bisulfate (Plavix) 75 mg PO DAILY [facility] Stop: 06/01/17 08:59 Last Admin: 04/10/17 09:00 Dose: 75 mg Cyanocobalamin (Vitamin B12) 500 mcg PO DAILY [facility] Stop: 06/01/17 08:59 Last Admin: 04/10/17 09:01 Dose: 500 mcg Divalproex Sodium (Depakote Dr) 125 mg PO Q12HR [facility] PRN Reason: Protocol Stop: 06/02/17 20:59 Last Admin: 04/10/17 20:24 Dose: 125 mg Docusate Sodium (Colace) 100 mg PO BID [facility] Stop: 06/01/17 08:59 Last Admin: 04/10/17 16:27 Dose: 100 mg Folic Acid (Folate) 1 mg PO DAILY [facility] Stop: 06/01/17 08:59 Last Admin: 04/10/17 09:00 Dose: 1 mg Gabapentin (Neurontin) 200 mg PO BID [facility] Stop: 06/01/17 08:59 Last Admin: 04/10/17 16:27 Dose: 200 mg Lorazepam (Ativan) 1 mg PO Q6H PRN; Protocol PRN Reason: Anxiety/Agitation Stop: 06/01/17 01:49 Last Admin: 04/03/17 21:14 Dose: 1 mg Magnesium Hydroxide (Milk Of Magnesia) 30 ml PO HS PRN PRN Reason: Constipation Stop: 05/31/17 23:48 Mupirocin (Bactroban Oint) 1 appl TP BID [facility] Stop: 04/19/17 17:01 Last Admin: 04/10/17 10:50 Dose: 1 appl Tamsulosin HCl (Flomax) 0.4 mg PO HS [facility] Stop: 06/01/17 20:59 Last Admin: 04/10/17 20:24 Dose: 0.4 mg Zolpidem Tartrate (Ambien) 5 mg PO HS PRN PRN Reason: Insomnia Stop: 06/01/17 01:49 General: alert HEENT: NC/AT, PERRLA Neck: Supple Lungs: CTAB Cardiovascular: RRR, Normal S1, without murmur Abdomen: non-distended Internal Medicine Assmt/Plan - Assessment Assessment: pvd, copd, apraxia, heart failure, anemia, bph, dysphagia, neuralgia, schizophrenia, anxiety syncope, chronic ischemic heart disease. - Plan Plan: ASPIRATION PRECAUTIONS CONTINUE CURRENT PLAN OF CARE Nutritional Asmnt/Malnutr-PDOC - Dietary Evaluation Malnutrition Findings (Please click <Entered> for more info): Nutritional Asmnt/Malnutrition Start: 04/06/17 15: 43 Text: Status: Complete Freq: Document 04/06/17 15:43 SALIMA (Rec: 04/06/17 15:47 SALIMA [id number]) Nutritional Asmnt/Malnutrition Patient General Information Nutritional Screening Moderate Risk Diagnosis psychosis Pertinent Medical Hx/Surgical Hx PVD, CODP, aprzxia, heart failure, anemia, BPH, dysphagia, neuralgia, schizophrenia, anxiety syncope , chronic ischemic heart disease Subjective Information Per EMR, PO intake 100% of all meals since admission Current Diet Order/ Nutrition Support NIALL pureed, nectar, extra gravy Pertinent Medications vitamin B12, colace, folate Pertinent Labs 04/01 nutrition related labs WNL Nutritional Hx/Data Height 5 ft 9 in Height (Calculated Centimeters) 175.3 Current Weight (lbs) 180 lb Weight (Calculated Kilograms) 81.6 Weight (Calculated Grams) 41655.6 [place] Body Weight 160 % [place] Body Weight 113 Body Mass Index (BMI) 26.6 Weight Status Overweight GI Symptoms GI Symptoms None Last BM 04/06 Difficult in: None Skin Integrity/Comment: intact Estimated Nutritional Goals BEE in Kcals: Using Current wt Calories/Kcals/Kg 25-30 Kcals Calculated 7536-9748 Protein: Using Current wt Protein g/k Protein Calculated 82 Fluid: ml 6982-4890 Nutritional Problem No current Nutrition Prob Problem N/A Intervention/Recommendation Comments 1. Continue with current diet as ordered. 2. Monitor PO intake, wt, labs and skin integrity 3. F/U as low riwk in 7 days, 04/13 Expected Outcomes/Goals Expected Outcomes/Goals 1. PO intake to meet at least 75% of nutritional needs. 2. Wt stability, skin to remain intact, labs WNL.
[2017-04-11] MEDS: Albuterol/Ipratropium Neb 3 ML AERS HHN SCH ×7 (00:28→23:58)
--- NOTE | 2017-04-11 04:11 | Consultation ---
DATE OF CONSULTATION: 04/09/2017 INFECTIOUS DISEASE CONSULTATION PRIMARY CARE PHYSICIAN: Dr. Bates. REASON FOR CONSULTATION: Rash on the feet. HISTORY OF PRESENT ILLNESS: This is a 71-year-old male, who was brought to the Emergency Room on 04/01/2017 with complaint of altered mental started, aggressive behavior. The patient was found to have rash on the feet and was admitted to [facility] Infectious consultation was called. Discussed with the staff. Bactroban started twice a day. The patient was reluctant to provide any history. Old chart reviewed, pertinent information obtained. PAST MEDICAL HISTORY: COPD, peripheral vascular disease, history of benign prostatic hypertrophy, dysphagia, neuralgia, anxiety, coronary artery disease. FAMILY HISTORY: Negative. PERSONAL HISTORY: . REVIEW OF SYSTEMS: A 14-point review of systems negative except above. PHYSICAL EXAMINATION: GENERAL: An elderly male. VITAL SIGNS: Temperature is 98, pulse 74, respirations 20, blood pressure 100/60. HEENT: Mild pallor, no icterus or plaque. NECK: Supple. LUNGS: Breath sounds bilateral. CARDIOVASCULAR: S1 . ABDOMEN: Soft. Bowel sounds present. NODES: No thyroid or cervical lymph nodes. DIAGNOSES: Folliculitis in both legs. Diagnosis of rash on both feet probably secondary to Staphylococcus, we will put Bactroban. Constipation, docusate. Aspirin for coronary artery disease along with Plavix and valproic acid for aggressive behavior and we will stop Prednisone. Benign prostatic hypertrophy, tamsulosin. Rest of the care as ordered in CPOE. Thank you, Dr. Bates, for this consultation. JOB# [id number]
[2017-04-11] MEDS: Aspirin 325 mg EC PO SCH (09:38)
--- NOTE | 2017-04-11 20:48 | Progress Notes ---
DATE: 04/11/2017 PSYCHIATRIC PROGRESS NOTE SUBJECTIVE: Staff was spoken to. The patient is interviewed. Mood is noted to be irritable. Affect is constricted. Insight and judgment are noted to be improving. Impulse control seems to be poor. The patient is a total care patient. The patient has no insight into his illness. The patient is isolative and withdrawn. Participation in the groups is noted to be very minimal. ASSESSMENT: The patient is still impulsive. PLAN: To continue the patient with Depakote. Encouraged the patient to verbalize the concerns rather than to act out. JOB# [id number]
[2017-04-12] MEDS: Albuterol/Ipratropium Neb 3 ML AERS HHN SCH ×6 (02:55→22:21)
[2017-04-12] MEDS: Aspirin 325 mg EC PO SCH (09:59)
--- NOTE | 2017-04-12 11:17 | General Progress Note ---
Subjective - Review of Systems Events since last encounter: patient continues to be impulsive irritable , in no acute distress Objective - Results Result Diagrams: 04/01/17 21:45 04/01/17 21:45 Recent Labs: Laboratory Last Values WBC 9.6 Th/cmm (4.8-10.8) 04/01/17 21:45 RBC 5.37 Mil/cmm (3.80-5.80) 04/01/17 21:45 Hgb 15.1 gm/dL (12-16) 04/01/17 21:45 Hct 46.9 % (41.0-60) 04/01/17 21:45 MCV 87.3 fl (80-99) 04/01/17 21:45 MCH 28.1 pg (27.0-31.0) 04/01/17 21:45 MCHC Differential 32.1 pg (28.0-36.0) 04/01/17 21:45 RDW 14.4 % (11.5-20.0) 04/01/17 21:45 Plt Count 333 Th/cmm (150-400) 04/01/17 21:45 MPV 7.5 fl 04/01/17 21:45 Neutrophils % 74.7 % (40.0-80.0) 04/01/17 21:45 Lymphocytes % 14.0 % (20.0-50.0) L 04/01/17 21:45 Monocytes % 7.6 % (2.0-10.0) 04/01/17 21:45 Eosinophils % 0.3 % (0.0-5.0) 04/01/17 21:45 Basophils % 3.4 % (0.0-2.0) H 04/01/17 21:45 Sodium 137 mEq/L (136-145) 04/01/17 21:45 Potassium 4.1 mEq/L (3.5-5.1) 04/01/17 21:45 Chloride 107 mEq/L (98-107) 04/01/17 21:45 Carbon Dioxide 24.4 mEq/L (21.0-31.0) 04/01/17 21:45 Anion Gap 9.7 (7.0-16.0) 04/01/17 21:45 BUN 13 mg/dL (7-25) 04/01/17 21:45 Creatinine 0.7 mg/dL (0.7-1.3) 04/01/17 21:45 Est GFR ( Amer) > 60.0 ml/min (>90) 04/01/17 21:45 Est GFR (Non-Af Amer) > 60.0 ml/min 04/01/17 21:45 BUN/Creatinine Ratio 18.6 04/01/17 21:45 Glucose 91 mg/dL (70-105) 04/01/17 21:45 Calcium 9.2 mg/dL (8.6-10.3) 04/01/17 21:45 TSH 0.89 uIU/ml (0.34-5.60) 04/01/17 21:45 RPR NONREACTIVE (NONREACTIVE) 04/01/17 21:45 - Physical Exam Vitals and I&O: Vital Signs Temp 97.9 F 04/12/17 06:37 Pulse 82 04/12/17 10:59 Resp 16 04/12/17 10:59 BP 121/64 04/12/17 06:37 Pulse Ox 92 04/12/17 10:59 Intake & Output 04/11/17 04/12/17 04/12/17 18:59 06:59 18:59 Intake Total 1200 120 Balance 1200 120 Intake: Oral 1200 120 Other: # Voids 3 3 # Bowel Movements 1 Active Medications: Current Medications Acetaminophen (Tylenol) 650 mg PO Q6H PRN PRN Reason: Mild Pain/Headache/T above 101 Stop: 05/31/17 23:48 Last Admin: 04/05/17 15:19 Dose: 650 mg Al Hydrox/Mg Hydrox/Simethicone (Maalox) 30 ml PO Q6H PRN PRN Reason: Dyspepsia Stop: 05/31/17 23:48 Albuterol/Ipratropium (Duoneb Neb) 3 ml HHN Q4HRT [facility] Stop: 06/04/17 18:59 Last Admin: 04/12/17 10:56 Dose: 3 ml Aspirin (Ecotrin) 325 mg PO DAILY [facility] Stop: 06/01/17 08:59 Last Admin: 04/12/17 09:59 Dose: 325 mg Clopidogrel Bisulfate (Plavix) 75 mg PO DAILY [facility] Stop: 06/01/17 08:59 Last Admin: 04/12/17 10:00 Dose: 75 mg Cyanocobalamin (Vitamin B12) 500 mcg PO DAILY [facility] Stop: 06/01/17 08:59 Last Admin: 04/12/17 09:59 Dose: 500 mcg Divalproex Sodium (Depakote Dr) 125 mg PO Q12HR [facility] PRN Reason: Protocol Stop: 06/02/17 20:59 Last Admin: 04/12/17 09:59 Dose: 125 mg Docusate Sodium (Colace) 100 mg PO BID [facility] Stop: 06/01/17 08:59 Last Admin: 04/12/17 09:59 Dose: 100 mg Folic Acid (Folate) 1 mg PO DAILY [facility] Stop: 06/01/17 08:59 Last Admin: 04/12/17 09:59 Dose: 1 mg Gabapentin (Neurontin) 200 mg PO BID [facility] Stop: 06/01/17 08:59 Last Admin: 04/12/17 10:00 Dose: 200 mg Lorazepam (Ativan) 1 mg PO Q6H PRN; Protocol PRN Reason: Anxiety/Agitation Stop: 06/01/17 01:49 Last Admin: 04/03/17 21:14 Dose: 1 mg Magnesium Hydroxide (Milk Of Magnesia) 30 ml PO HS PRN PRN Reason: Constipation Stop: 05/31/17 23:48 Mupirocin (Bactroban Oint) 1 appl TP BID [facility] Stop: 04/19/17 17:01 Last Admin: 04/12/17 10:09 Dose: 1 appl Tamsulosin HCl (Flomax) 0.4 mg PO HS [facility] Stop: 06/01/17 20:59 Last Admin: 04/11/17 20:57 Dose: 0.4 mg Zolpidem Tartrate (Ambien) 5 mg PO HS PRN PRN Reason: Insomnia Stop: 06/01/17 01:49 General: No acute distress HEENT: Atraumatic Neck: Supple Cardiovascular: Regular rate, Normal S1, Normal S2 Lungs: Clear to auscultation Abdomen: Bowel sounds Assessment/Plan - Problem List Patient Problems: All Active Problems Anemia (Acute) D64.9 BPH (benign prostatic hyperplasia) (Acute) N40.0 COPD (chronic obstructive pulmonary disease) (Acute) Dysphagia (Acute) R13.10 Mood disorder (Acute) F39 Peripheral vascular disease (Acute) I73.9 Psychosis (Acute) F29 - Plan Plan: as per psych will monitor Nutritional Asmnt/Malnutr-PDOC - Dietary Evaluation Malnutrition Findings (Please click <Entered> for more info): Nutritional Asmnt/Malnutrition Start: 04/06/17 15: 43 Text: Status: Complete Freq: Document 04/06/17 15:43 SALIMA (Rec: 04/06/17 15:47 SALIMA [email or web address]) Nutritional Asmnt/Malnutrition Patient General Information Nutritional Screening Moderate Risk Diagnosis psychosis Pertinent Medical Hx/Surgical Hx PVD, CODP, aprzxia, heart failure, anemia, BPH, dysphagia, neuralgia, schizophrenia, anxiety syncope , chronic ischemic heart disease Subjective Information Per EMR, PO intake 100% of all meals since admission Current Diet Order/ Nutrition Support NIALL pureed, nectar, extra gravy Pertinent Medications vitamin B12, colace, folate Pertinent Labs 1 nutrition related labs WNL Nutritional Hx/Data Height 1.75 m Height (Calculated Centimeters) 175.3 Current Weight (lbs) 81.647 kg Weight (Calculated Kilograms) 81.6 Weight (Calculated Grams) 76320.6 [place] Body Weight 160 % [place] Body Weight 113 Body Mass Index (BMI) 26.6 Weight Status Overweight GI Symptoms GI Symptoms None Last BM 04/06 Difficult in: None Skin Integrity/Comment: intact Estimated Nutritional Goals BEE in Kcals: Using Current wt Calories/Kcals/Kg 25-30 Kcals Calculated 5037-5226 Protein: Using Current wt Protein g/k Protein Calculated 82 Fluid: ml 8566-2517 Nutritional Problem No current Nutrition Prob Problem N/A Intervention/Recommendation Comments 1. Continue with current diet as ordered. 2. Monitor PO intake, wt, labs and skin integrity 3. F/U as low riwk in 7 days, 04/13 Expected Outcomes/Goals Expected Outcomes/Goals 1. PO intake to meet at least 75% of nutritional needs. 2. Wt stability, skin to remain intact, labs WNL.
--- NOTE | 2017-04-12 20:02 | Progress Notes ---
DATE: 04/12/2017 SUBJECTIVE: Staff was spoken to. The patient is interviewed. Mood is noted to be irritable. Affect is constricted. The patient is isolative and withdrawn. Coping skills are noted to be very poor at this time. No side effects to the medications are noted. The patient has been having difficult time to cope with the stress. ASSESSMENT: The patient is still psychotic and still impulsive. PLAN: To continue the patient with the current medications and await for placement. JOB# [id number]
[2017-04-13] MEDS: Albuterol/Ipratropium Neb 3 ML AERS HHN SCH ×5 (04:03→19:26)
[2017-04-13] MEDS: Aspirin 325 mg EC PO SCH (08:45)
[2017-04-13] MEDS ORDERED: Albuterol/Ipratropium Neb 3 ML AERS HHN PRN (09:14)
--- NOTE | 2017-04-13 10:27 | Progress Notes ---
DATE: 04/13/2017 SUBJECTIVE: Staff was spoken to. The patient is interviewed. Mood is noted to be irritable. Affect is constricted. Insight and judgment at this time are noted to be impaired. Impulse control seems to be limited. The patient is screaming and yelling has been coming down, but the patient is a total care. The patient needs to be taken care. The patient is able to tolerate the Depakote. ASSESSMENT: The patient's impulsivity is coming under control. PLAN: To continue the patient with the supportive therapy and followup. JOB# [id number]
--- NOTE | 2017-04-13 12:43 | General Progress Note ---
Subjective - Review of Systems Events since last encounter: in no distress confused Objective - Results Result Diagrams: 04/01/17 21:45 04/01/17 21:45 Recent Labs: Laboratory Last Values WBC 9.6 Th/cmm (4.8-10.8) 04/01/17 21:45 RBC 5.37 Mil/cmm (3.80-5.80) 04/01/17 21:45 Hgb 15.1 gm/dL (12-16) 04/01/17 21:45 Hct 46.9 % (41.0-60) 04/01/17 21:45 MCV 87.3 fl (80-99) 04/01/17 21:45 MCH 28.1 pg (27.0-31.0) 04/01/17 21:45 MCHC Differential 32.1 pg (28.0-36.0) 04/01/17 21:45 RDW 14.4 % (11.5-20.0) 04/01/17 21:45 Plt Count 333 Th/cmm (150-400) 04/01/17 21:45 MPV 7.5 fl 04/01/17 21:45 Neutrophils % 74.7 % (40.0-80.0) 04/01/17 21:45 Lymphocytes % 14.0 % (20.0-50.0) L 04/01/17 21:45 Monocytes % 7.6 % (2.0-10.0) 04/01/17 21:45 Eosinophils % 0.3 % (0.0-5.0) 04/01/17 21:45 Basophils % 3.4 % (0.0-2.0) H 04/01/17 21:45 Sodium 137 mEq/L (136-145) 04/01/17 21:45 Potassium 4.1 mEq/L (3.5-5.1) 04/01/17 21:45 Chloride 107 mEq/L (98-107) 04/01/17 21:45 Carbon Dioxide 24.4 mEq/L (21.0-31.0) 04/01/17 21:45 Anion Gap 9.7 (7.0-16.0) 04/01/17 21:45 BUN 13 mg/dL (7-25) 04/01/17 21:45 Creatinine 0.7 mg/dL (0.7-1.3) 04/01/17 21:45 Est GFR ( Amer) > 60.0 ml/min (>90) 04/01/17 21:45 Est GFR (Non-Af Amer) > 60.0 ml/min 04/01/17 21:45 BUN/Creatinine Ratio 18.6 04/01/17 21:45 Glucose 91 mg/dL (70-105) 04/01/17 21:45 Calcium 9.2 mg/dL (8.6-10.3) 04/01/17 21:45 TSH 0.89 uIU/ml (0.34-5.60) 04/01/17 21:45 RPR NONREACTIVE (NONREACTIVE) 04/01/17 21:45 - Physical Exam Vitals and I&O: Vital Signs Temp 97.8 F 04/13/17 05:48 Pulse 74 04/13/17 11:03 Resp 18 04/13/17 11:03 BP 104/67 04/13/17 05:48 Pulse Ox 92 04/13/17 10:53 Intake & Output 04/12/17 04/13/17 04/13/17 18:59 06:59 18:59 Intake Total 700 120 Balance 700 120 Intake: Oral 700 120 Other: # Voids 3 3 # Bowel Movements 1 Active Medications: Current Medications Acetaminophen (Tylenol) 650 mg PO Q6H PRN PRN Reason: Mild Pain/Headache/T above 101 Stop: 05/31/17 23:48 Last Admin: 04/05/17 15:19 Dose: 650 mg Al Hydrox/Mg Hydrox/Simethicone (Maalox) 30 ml PO Q6H PRN PRN Reason: Dyspepsia Stop: 05/31/17 23:48 Albuterol/Ipratropium (Duoneb Neb) 3 ml HHN QIDRT [facility] Stop: 06/12/17 10:59 Last Admin: 04/13/17 10:51 Dose: 3 ml Albuterol/Ipratropium (Duoneb Neb) 3 ml HHN Q4HRT PRN PRN Reason: SHORT OF REATH Stop: 06/12/17 10:59 Aspirin (Ecotrin) 325 mg PO DAILY [facility] Stop: 06/01/17 08:59 Last Admin: 04/13/17 08:45 Dose: 325 mg Clopidogrel Bisulfate (Plavix) 75 mg PO DAILY [facility] Stop: 06/01/17 08:59 Last Admin: 04/13/17 08:44 Dose: 75 mg Cyanocobalamin (Vitamin B12) 500 mcg PO DAILY [facility] Stop: 06/01/17 08:59 Last Admin: 04/13/17 08:45 Dose: 500 mcg Divalproex Sodium (Depakote Dr) 125 mg PO Q12HR [facility] PRN Reason: Protocol Stop: 06/02/17 20:59 Last Admin: 04/13/17 08:45 Dose: 125 mg Docusate Sodium (Colace) 100 mg PO BID [facility] Stop: 06/01/17 08:59 Last Admin: 04/13/17 08:44 Dose: 100 mg Folic Acid (Folate) 1 mg PO DAILY [facility] Stop: 06/01/17 08:59 Last Admin: 04/13/17 08:45 Dose: 1 mg Gabapentin (Neurontin) 200 mg PO BID [facility] Stop: 06/01/17 08:59 Last Admin: 04/13/17 08:44 Dose: 200 mg Lorazepam (Ativan) 1 mg PO Q6H PRN; Protocol PRN Reason: Anxiety/Agitation Stop: 06/01/17 01:49 Last Admin: 04/03/17 21:14 Dose: 1 mg Magnesium Hydroxide (Milk Of Magnesia) 30 ml PO HS PRN PRN Reason: Constipation Stop: 05/31/17 23:48 Mupirocin (Bactroban Oint) 1 appl TP BID [facility] Stop: 04/19/17 17:01 Last Admin: 04/13/17 08:46 Dose: 1 appl Tamsulosin HCl (Flomax) 0.4 mg PO HS [facility] Stop: 06/01/17 20:59 Last Admin: 04/12/17 20:29 Dose: 0.4 mg Zolpidem Tartrate (Ambien) 5 mg PO HS PRN PRN Reason: Insomnia Stop: 06/01/17 01:49 General: No acute distress HEENT: Atraumatic Neck: Supple Cardiovascular: Regular rate, Normal S1, Normal S2 Lungs: Clear to auscultation Abdomen: Bowel sounds Assessment/Plan - Problem List Patient Problems: All Active Problems Anemia (Acute) D64.9 BPH (benign prostatic hyperplasia) (Acute) N40.0 COPD (chronic obstructive pulmonary disease) (Acute) Dysphagia (Acute) R13.10 Mood disorder (Acute) F39 Peripheral vascular disease (Acute) I73.9 Psychosis (Acute) F29 - Plan Plan: as per psych will monitor Nutritional Asmnt/Malnutr-PDOC - Dietary Evaluation Malnutrition Findings (Please click <Entered> for more info): Nutritional Asmnt/Malnutrition Start: 04/06/17 15: 43 Text: Status: Complete Freq: Document 04/06/17 15:43 SALIMA (Rec: 04/06/17 15:47 ROHITH [email or web address]) Nutritional Asmnt/Malnutrition Patient General Information Nutritional Screening Moderate Risk Diagnosis psychosis Pertinent Medical Hx/Surgical Hx PVD, CODP, aprzxia, heart failure, anemia, BPH, dysphagia, neuralgia, schizophrenia, anxiety syncope , chronic ischemic heart disease Subjective Information Per EMR, PO intake 100% of all meals since admission Current Diet Order/ Nutrition Support NIALL pureed, nectar, extra gravy Pertinent Medications vitamin B12, colace, folate Pertinent Labs 1/ nutrition related labs WNL Nutritional Hx/Data Height 1.75 m Height (Calculated Centimeters) 175.3 Current Weight (lbs) 81.647 kg Weight (Calculated Kilograms) 81.6 Weight (Calculated Grams) 76676.6 [place] Body Weight 160 % [place] Body Weight 113 Body Mass Index (BMI) 26.6 Weight Status Overweight GI Symptoms GI Symptoms None Last BM 04/06 Difficult in: None Skin Integrity/Comment: intact Estimated Nutritional Goals BEE in Kcals: Using Current wt Calories/Kcals/Kg 25-30 Kcals Calculated 5373-7163 Protein: Using Current wt Protein g/k Protein Calculated 82 Fluid: ml 0363-6813 Nutritional Problem No current Nutrition Prob Problem N/A Intervention/Recommendation Comments 1. Continue with current diet as ordered. 2. Monitor PO intake, wt, labs and skin integrity 3. F/U as low riwk in 7 days, 04/13 Expected Outcomes/Goals Expected Outcomes/Goals 1. PO intake to meet at least 75% of nutritional needs. 2. Wt stability, skin to remain intact, labs WNL.
[2017-04-14] MEDS: Albuterol/Ipratropium Neb 3 ML AERS HHN SCH ×4 (08:19→19:49)
--- NOTE | 2017-04-14 10:56 | Progress Notes ---
DATE: 04/13/2017 SUBJECTIVE: The patient was seen in his room, lying in the bed. The patient appears to be guarded with poor judgement, but in no acute distress. OBJECTIVE: VITAL SIGNS: Temperature 97.3, heart rate 85, respirations of 14, 96% on room air. HEENT: Head is atraumatic and normocephalic. Eyes: Bilateral conjunctivae are clear. Bilateral pupils are equally round and reactive. NECK: Supple. No JVD. CARDIOVASCULAR: S1 and S2, without murmur. PULMONARY: Clear to auscultation. GASTROINTESTINAL: Soft and nontender without guarding. Positive bowel sounds. MUSCULOSKELETAL: No clubbing, no cyanosis noted. ASSESSMENT: 1. Psychosis. 2. Mood disorder. 3. Chronic obstructive pulmonary disease. 4. Benign prostatic hypertrophy. 5. Peripheral vascular disease. 6. Anemia. PLAN: We will continue to keep the patient in inpatient Psychiatric Unit. We will follow up with a psychiatrist to monitor the patient's condition behavior. Treatment plans were discussed with the patient's nurse. Treatment plans were discussed with Dr. Bates. [facility]# [id number]
[2017-04-14] MEDS: Aspirin 325 mg EC PO SCH (10:59)
--- NOTE | 2017-04-14 17:12 | Internal Medicine Prog Note ---
Internal Medicine Subjective - Subjective Service Date: 04/14/17 Patient is:: awake Per staff patient has:: no adverse event Internal Medicine Objective - Results Result Diagrams: 04/01/17 21:45 04/01/17 21:45 Recent Labs: Laboratory Last Values WBC 9.6 Th/cmm (4.8-10.8) 04/01/17 21:45 RBC 5.37 Mil/cmm (3.80-5.80) 04/01/17 21:45 Hgb 15.1 gm/dL (12-16) 04/01/17 21:45 Hct 46.9 % (41.0-60) 04/01/17 21:45 MCV 87.3 fl (80-99) 04/01/17 21:45 MCH 28.1 pg (27.0-31.0) 04/01/17 21:45 MCHC Differential 32.1 pg (28.0-36.0) 04/01/17 21:45 RDW 14.4 % (11.5-20.0) 04/01/17 21:45 Plt Count 333 Th/cmm (150-400) 04/01/17 21:45 MPV 7.5 fl 04/01/17 21:45 Neutrophils % 74.7 % (40.0-80.0) 04/01/17 21:45 Lymphocytes % 14.0 % (20.0-50.0) L 04/01/17 21:45 Monocytes % 7.6 % (2.0-10.0) 04/01/17 21:45 Eosinophils % 0.3 % (0.0-5.0) 04/01/17 21:45 Basophils % 3.4 % (0.0-2.0) H 04/01/17 21:45 Sodium 137 mEq/L (136-145) 04/01/17 21:45 Potassium 4.1 mEq/L (3.5-5.1) 04/01/17 21:45 Chloride 107 mEq/L (98-107) 04/01/17 21:45 Carbon Dioxide 24.4 mEq/L (21.0-31.0) 04/01/17 21:45 Anion Gap 9.7 (7.0-16.0) 04/01/17 21:45 BUN 13 mg/dL (7-25) 04/01/17 21:45 Creatinine 0.7 mg/dL (0.7-1.3) 04/01/17 21:45 Est GFR ( Amer) > 60.0 ml/min (>90) 04/01/17 21:45 Est GFR (Non-Af Amer) > 60.0 ml/min 04/01/17 21:45 BUN/Creatinine Ratio 18.6 04/01/17 21:45 Glucose 91 mg/dL (70-105) 04/01/17 21:45 Calcium 9.2 mg/dL (8.6-10.3) 04/01/17 21:45 TSH 0.89 uIU/ml (0.34-5.60) 04/01/17 21:45 RPR NONREACTIVE (NONREACTIVE) 04/01/17 21:45 - Physical Exam Vitals and I&O: Vital Signs Temp 98.5 F 04/14/17 15:28 Pulse 80 04/14/17 15:50 Resp 20 04/14/17 15:50 BP 102/52 04/14/17 15:28 Pulse Ox 96 04/14/17 15:50 Intake & Output 04/13/17 04/14/17 04/14/17 18:59 06:59 18:59 Intake Total 1200 300 Output Total 1 Balance 1200 299 Intake: Oral 1200 300 Output: Stool 1 Other: # Voids 3 2 # Bowel Movements 0 Active Medications: Current Medications Acetaminophen (Tylenol) 650 mg PO Q6H PRN PRN Reason: Mild Pain/Headache/T above 101 Stop: 05/31/17 23:48 Last Admin: 04/05/17 15:19 Dose: 650 mg Al Hydrox/Mg Hydrox/Simethicone (Maalox) 30 ml PO Q6H PRN PRN Reason: Dyspepsia Stop: 05/31/17 23:48 Albuterol/Ipratropium (Duoneb Neb) 3 ml HHN QIDRT HAY Stop: 06/12/17 10:59 Last Admin: 04/14/17 15:50 Dose: 3 ml Albuterol/Ipratropium (Duoneb Neb) 3 ml HHN Q4HRT PRN PRN Reason: SHORT OF REATH Stop: 06/12/17 10:59 Last Admin: 04/14/17 05:08 Dose: 3 ml Aspirin (Ecotrin) 325 mg PO DAILY [facility] Stop: 06/01/17 08:59 Last Admin: 04/14/17 10:59 Dose: 325 mg Clopidogrel Bisulfate (Plavix) 75 mg PO DAILY [facility] Stop: 06/01/17 08:59 Last Admin: 04/14/17 10:59 Dose: 75 mg Cyanocobalamin (Vitamin B12) 500 mcg PO DAILY [facility] Stop: 06/01/17 08:59 Last Admin: 04/14/17 11:00 Dose: 500 mcg Divalproex Sodium (Depakote Dr) 125 mg PO Q12HR HAY PRN Reason: Protocol Stop: 06/02/17 20:59 Last Admin: 04/14/17 10:59 Dose: 125 mg Docusate Sodium (Colace) 100 mg PO BID [facility] Stop: 06/01/17 08:59 Last Admin: 04/14/17 11:13 Dose: Not Given Folic Acid (Folate) 1 mg PO DAILY [facility] Stop: 06/01/17 08:59 Last Admin: 04/14/17 10:59 Dose: 1 mg Gabapentin (Neurontin) 200 mg PO BID [facility] Stop: 06/01/17 08:59 Last Admin: 04/14/17 11:13 Dose: 200 mg Lorazepam (Ativan) 1 mg PO Q6H PRN; Protocol PRN Reason: Anxiety/Agitation Stop: 06/01/17 01:49 Last Admin: 04/03/17 21:14 Dose: 1 mg Magnesium Hydroxide (Milk Of Magnesia) 30 ml PO HS PRN PRN Reason: Constipation Stop: 05/31/17 23:48 Mupirocin (Bactroban Oint) 1 appl TP BID [facility] Stop: 04/19/17 17:01 Last Admin: 04/14/17 11:13 Dose: 1 appl Ondansetron HCl (Zofran Odt) 4 mg PO Q6H PRN PRN Reason: Nausea / Vomiting Stop: 06/13/17 06:31 Tamsulosin HCl (Flomax) 0.4 mg PO HS [facility] Stop: 06/01/17 20:59 Last Admin: 04/13/17 20:07 Dose: 0.4 mg Zolpidem Tartrate (Ambien) 5 mg PO HS PRN PRN Reason: Insomnia Stop: 06/01/17 01:49 General: alert HEENT: NC/AT, PERRLA Neck: Supple Lungs: CTAB Cardiovascular: RRR, Normal S1, without murmur Abdomen: non-distended Internal Medicine Assmt/Plan - Assessment Assessment: pvd, copd, apraxia, heart failure, anemia, bph, dysphagia, neuralgia, schizophrenia, anxiety syncope, chronic ischemic heart disease. - Plan Plan: ASPIRATION PRECAUTIONS CONTINUE CURRENT PLAN OF CARE Nutritional Asmnt/Malnutr-PDOC - Dietary Evaluation Malnutrition Findings (Please click <Entered> for more info): Nutritional Asmnt/Malnutrition Start: 04/06/17 15: 43 Text: Status: Complete Freq: Document 04/06/17 15:43 SALIMA (Rec: 04/06/17 15:47 SALIMA [email or web address]) Nutritional Asmnt/Malnutrition Patient General Information Nutritional Screening Moderate Risk Diagnosis psychosis Pertinent Medical Hx/Surgical Hx PVD, CODP, aprzxia, heart failure, anemia, BPH, dysphagia, neuralgia, schizophrenia, anxiety syncope , chronic ischemic heart disease Subjective Information Per EMR, PO intake 100% of all meals since admission Current Diet Order/ Nutrition Support NIALL pureed, nectar, extra gravy Pertinent Medications vitamin B12, colace, folate Pertinent Labs 1/ nutrition related labs WNL Nutritional Hx/Data Height 5 ft 9 in Height (Calculated Centimeters) 175.3 Current Weight (lbs) 180 lb Weight (Calculated Kilograms) 81.6 Weight (Calculated Grams) 28937.6 [place] Body Weight 160 % [place] Body Weight 113 Body Mass Index (BMI) 26.6 Weight Status Overweight GI Symptoms GI Symptoms None Last BM 04/06 Difficult in: None Skin Integrity/Comment: intact Estimated Nutritional Goals BEE in Kcals: Using Current wt Calories/Kcals/Kg 25-30 Kcals Calculated Protein: Using Current wt Protein g/k Protein Calculated 82 Fluid: ml 0425-9252 Nutritional Problem No current Nutrition Prob Problem N/A Intervention/Recommendation Comments 1. Continue with current diet as ordered. 2. Monitor PO intake, wt, labs and skin integrity 3. F/U as low riwk in 7 days, 04/13 Expected Outcomes/Goals Expected Outcomes/Goals 1. PO intake to meet at least 75% of nutritional needs. 2. Wt stability, skin to remain intact, labs WNL.
--- NOTE | 2017-04-14 17:23 | Progress Notes ---
DATE: 04/14/2017 PSYCHIATRIC PROGRESS NOTE SUBJECTIVE: Staff was spoken to. The patient is interviewed. Mood is noted to be irritable. Affect is constricted. Coping skills still are noted to be poor. No side effects to the medications are noted. The patient has been having difficult time to cope with the stress. The patient has been on the Depakote and has been able to tolerate the medication. The aggressive behavior seems to be coming down. ASSESSMENT: The patient is still impulsive. PLAN: To continue the patient with the supportive therapy and followup. JOB# [id number]
[2017-04-15] MEDS: Albuterol/Ipratropium Neb 3 ML AERS HHN SCH ×4 (07:19→19:21)
[2017-04-15] MEDS: Aspirin 325 mg EC PO SCH (09:58)
--- NOTE | 2017-04-15 11:48 | General Progress Note ---
Subjective - Review of Systems Events since last encounter: awake denies pain Objective - Results Result Diagrams: 04/01/17 21:45 04/01/17 21:45 Recent Labs: Laboratory Last Values WBC 9.6 Th/cmm (4.8-10.8) 04/01/17 21:45 RBC 5.37 Mil/cmm (3.80-5.80) 04/01/17 21:45 Hgb 15.1 gm/dL (12-16) 04/01/17 21:45 Hct 46.9 % (41.0-60) 04/01/17 21:45 MCV 87.3 fl (80-99) 04/01/17 21:45 MCH 28.1 pg (27.0-31.0) 04/01/17 21:45 MCHC Differential 32.1 pg (28.0-36.0) 04/01/17 21:45 RDW 14.4 % (11.5-20.0) 04/01/17 21:45 Plt Count 333 Th/cmm (150-400) 04/01/17 21:45 MPV 7.5 fl 04/01/17 21:45 Neutrophils % 74.7 % (40.0-80.0) 04/01/17 21:45 Lymphocytes % 14.0 % (20.0-50.0) L 04/01/17 21:45 Monocytes % 7.6 % (2.0-10.0) 04/01/17 21:45 Eosinophils % 0.3 % (0.0-5.0) 04/01/17 21:45 Basophils % 3.4 % (0.0-2.0) H 04/01/17 21:45 Sodium 137 mEq/L (136-145) 04/01/17 21:45 Potassium 4.1 mEq/L (3.5-5.1) 04/01/17 21:45 Chloride 107 mEq/L (98-107) 04/01/17 21:45 Carbon Dioxide 24.4 mEq/L (21.0-31.0) 04/01/17 21:45 Anion Gap 9.7 (7.0-16.0) 04/01/17 21:45 BUN 13 mg/dL (7-25) 04/01/17 21:45 Creatinine 0.7 mg/dL (0.7-1.3) 04/01/17 21:45 Est GFR ( Amer) > 60.0 ml/min (>90) 04/01/17 21:45 Est GFR (Non-Af Amer) > 60.0 ml/min 04/01/17 21:45 BUN/Creatinine Ratio 18.6 04/01/17 21:45 Glucose 91 mg/dL (70-105) 04/01/17 21:45 Calcium 9.2 mg/dL (8.6-10.3) 04/01/17 21:45 TSH 0.89 uIU/ml (0.34-5.60) 04/01/17 21:45 RPR NONREACTIVE (NONREACTIVE) 04/01/17 21:45 - Physical Exam Vitals and I&O: Vital Signs Temp 99.8 F 04/15/17 06:03 Pulse 84 04/15/17 10:27 Resp 18 04/15/17 10:27 BP 107/63 04/15/17 06:03 Pulse Ox 95 04/15/17 07:15 Intake & Output 04/14/17 04/15/17 04/15/17 18:59 06:59 18:59 Intake Total 950 300 Balance 950 300 Intake: Oral 950 300 Other: # Voids 3 2 # Bowel Movements 1 0 Active Medications: Current Medications Acetaminophen (Tylenol) 650 mg PO Q6H PRN PRN Reason: Mild Pain/Headache/T above 101 Stop: 05/31/17 23:48 Last Admin: 04/05/17 15:19 Dose: 650 mg Al Hydrox/Mg Hydrox/Simethicone (Maalox) 30 ml PO Q6H PRN PRN Reason: Dyspepsia Stop: 05/31/17 23:48 Albuterol/Ipratropium (Duoneb Neb) 3 ml HHN QIDRT [facility] Stop: 06/12/17 10:59 Last Admin: 04/15/17 07:19 Dose: 3 ml Albuterol/Ipratropium (Duoneb Neb) 3 ml HHN Q4HRT PRN PRN Reason: SHORT OF REATH Stop: 06/12/17 10:59 Last Admin: 04/14/17 05:08 Dose: 3 ml Aspirin (Ecotrin) 325 mg PO DAILY [facility] Stop: 06/01/17 08:59 Last Admin: 04/15/17 09:58 Dose: Not Given Clopidogrel Bisulfate (Plavix) 75 mg PO DAILY [facility] Stop: 06/01/17 08:59 Last Admin: 04/15/17 09:58 Dose: Not Given Cyanocobalamin (Vitamin B12) 500 mcg PO DAILY [facility] Stop: 06/01/17 08:59 Last Admin: 04/15/17 09:58 Dose: Not Given Divalproex Sodium (Depakote Dr) 125 mg PO Q12HR HAY PRN Reason: Protocol Stop: 06/02/17 20:59 Last Admin: 04/15/17 09:58 Dose: Not Given Docusate Sodium (Colace) 100 mg PO BID [facility] Stop: 06/01/17 08:59 Last Admin: 04/15/17 09:58 Dose: Not Given Folic Acid (Folate) 1 mg PO DAILY [facility] Stop: 06/01/17 08:59 Last Admin: 04/15/17 09:58 Dose: Not Given Gabapentin (Neurontin) 200 mg PO BID [facility] Stop: 06/01/17 08:59 Last Admin: 04/15/17 09:58 Dose: Not Given Lorazepam (Ativan) 1 mg PO Q6H PRN; Protocol PRN Reason: Anxiety/Agitation Stop: 06/01/17 01:49 Last Admin: 04/03/17 21:14 Dose: 1 mg Magnesium Hydroxide (Milk Of Magnesia) 30 ml PO HS PRN PRN Reason: Constipation Stop: 05/31/17 23:48 Mupirocin (Bactroban Oint) 1 appl TP BID [facility] Stop: 04/19/17 17:01 Last Admin: 04/15/17 09:58 Dose: Not Given Ondansetron HCl (Zofran Odt) 4 mg PO Q6H PRN PRN Reason: Nausea / Vomiting Stop: 06/13/17 06:31 Tamsulosin HCl (Flomax) 0.4 mg PO HS [facility] Stop: 06/01/17 20:59 Last Admin: 04/14/17 20:37 Dose: 0.4 mg Zolpidem Tartrate (Ambien) 5 mg PO HS PRN PRN Reason: Insomnia Stop: 06/01/17 01:49 General: No acute distress HEENT: Atraumatic Neck: Supple Cardiovascular: Regular rate, Normal S1, Normal S2 Lungs: Clear to auscultation Abdomen: Bowel sounds Assessment/Plan - Problem List Patient Problems: All Active Problems Anemia (Acute) D64.9 BPH (benign prostatic hyperplasia) (Acute) N40.0 COPD (chronic obstructive pulmonary disease) (Acute) Dysphagia (Acute) R13.10 Mood disorder (Acute) F39 Peripheral vascular disease (Acute) I73.9 Psychosis (Acute) F29 - Plan Plan: as per psych will monitor Nutritional Asmnt/Malnutr-PDOC - Dietary Evaluation Malnutrition Findings (Please click <Entered> for more info): Nutritional Asmnt/Malnutrition Start: 04/06/17 15: 43 Text: Status: Complete Freq: Document 04/06/17 15:43 SALIMA (Rec: 04/06/17 15:47 [facility] Nutritional Asmnt/Malnutrition Patient General Information Nutritional Screening Moderate Risk Diagnosis psychosis Pertinent Medical Hx/Surgical Hx PVD, CODP, aprzxia, heart failure, anemia, BPH, dysphagia, neuralgia, schizophrenia, anxiety syncope , chronic ischemic heart disease Subjective Information Per EMR, PO intake 100% of all meals since admission Current Diet Order/ Nutrition Support NIALL pureed, nectar, extra gravy Pertinent Medications vitamin B12, colace, folate Pertinent Labs 1/ nutrition related labs WNL Nutritional Hx/Data Height 1.75 m Height (Calculated Centimeters) 175.3 Current Weight (lbs) 81.647 kg Weight (Calculated Kilograms) 81.6 Weight (Calculated Grams) 10056.6 [place] Body Weight 160 % [place] Body Weight 113 Body Mass Index (BMI) 26.6 Weight Status Overweight GI Symptoms GI Symptoms None Last BM 04/06 Difficult in: None Skin Integrity/Comment: intact Estimated Nutritional Goals BEE in Kcals: Using Current wt Calories/Kcals/Kg 25-30 Kcals Calculated 4337-6576 Protein: Using Current wt Protein g/k Protein Calculated 82 Fluid: ml 2518-7671 Nutritional Problem No current Nutrition Prob Problem N/A Intervention/Recommendation Comments 1. Continue with current diet as ordered. 2. Monitor PO intake, wt, labs and skin integrity 3. F/U as low riwk in 7 days, 04/13 Expected Outcomes/Goals Expected Outcomes/Goals 1. PO intake to meet at least 75% of nutritional needs. 2. Wt stability, skin to remain intact, labs WNL.
--- NOTE | 2017-04-15 23:26 | Progress Notes ---
DATE: 04/15/2017 SUBJECTIVE: Staff was spoken to. The patient is interviewed. Mood is noted to be irritable. Affect is constricted. The patient is screaming and yelling today. The patient has been on Depakote 125 mg twice a day. PLAN: To increase the dose of the medication to 125 mg 3 times a day and follow the patient with supportive therapy. JOB# [id number]
[2017-04-16] MEDS: Albuterol/Ipratropium Neb 3 ML AERS HHN SCH ×3 (07:26→15:45)
[2017-04-16] MEDS: Aspirin 325 mg EC PO SCH (10:00)
--- NOTE | 2017-04-16 14:44 | Progress Notes ---
DATE: 04/16/2017 SUBJECTIVE: Staff was spoken to. The patient is interviewed. Mood is noted to be anxious. Affect is appropriate. Not suicidal or homicidal today. Coping skills are noted to be fair. The patient is currently on Depakote and has been able to tolerate the medications. No major side effects to the medications are noted. ASSESSMENT: The patient is stabilizing. PLAN: To discharge the patient today for followup on outpatient basis. [facility]# [id number]
== END 2017-04-16 16:50 | disposition home or self-care (01) | DRG 885 ==
LOC: ER 20:29 → GERO 04-02 01:15
PROVIDERS: ADMIT Psychiatry & Neurology Psychiatry; ATTEND Psychiatry & Neurology Psychiatry
DX: F29 Unspecified psychosis not due to a substance or known physiological condition (principal); I50.9 Heart failure, unspecified; J44.9 Chronic obstructive pulmonary disease, unspecified; F20.9 Schizophrenia, unspecified; F39 Unspecified mood [affective] disorder; I73.9 Peripheral vascular disease, unspecified; D64.9 Anemia, unspecified; N40.0 Benign prostatic hyperplasia without lower urinary tract symptoms; R13.10 Dysphagia, unspecified; M79.2 Neuralgia and neuritis, unspecified; F41.9 Anxiety disorder, unspecified; R55 Syncope and collapse; I25.9 Chronic ischemic heart disease, unspecified; R48.2 Apraxia; L73.9 Follicular disorder, unspecified; R21 Rash and other nonspecific skin eruption; K59.00 Constipation, unspecified; I25.10 Atherosclerotic heart disease of native coronary artery without angina pectoris; Z79.82 Long term (current) use of aspirin
CPT/HCPCS: 36415-UA; 80048-TC; 84443-TC; 85025-TC; 86592-TC; 93005; 94640; 94760; 97530; Q0162; X3904; Z7610